=== PATIENT | female | born 1970 | race Caucasian/White ===

== ENCOUNTER → 2016-08-07 | Outpatient (CLI) | payer BC ==
--- NOTE | 2016-08-07 10:57 | MM ---
Reason for exam: clinical finding. Last mammogram was performed 1 year and 4 months ago. History: Patient is nulliparous. Family history of breast cancer in maternal aunt at age 60. Benign US biopsy breast VAD RT of the right breast, April 05, 2015. Benign MG pre op needle loc RT of the right breast, November 08, 2014. Benign US breast aspiration single RT of the right breast, October 03, 2014. Benign excisional biopsy of the right breast, 2009. Took hormonal contraceptives for 16 years beginning at age 16. Indicated problem(s): pain in the right breast. Physical Findings: Nurse did not find any significant physical abnormalities on exam. MG 3D Diag Mammo W/Cad CHRISSIE Bilateral CC and MLO view(s) were taken. Prior study comparison: April 05, 2015, right breast MG diagnostic mammo RT wo CAD. March 26, 2015, bilateral MG diagnostic mammo w CAD CHRISSIE. The breast tissue is heterogeneously dense. This may lower the sensitivity of mammography. Finding: Architectural distortion in the upper outer quadrant of the right breast. Previous ultrasound biopsy, probable scar in the right breast. These results were verbally communicated with the patient and result sheet given to the patient on 08/07/16. ASSESSMENT: Probably benign, BI-RAD 3 RECOMMENDATION: Surgical consultation of the right breast. Called Dr. Reilly with mammographic findings and has scheduled an appointment for the patient for 09/03/16 at 2:[address] Baires. PRELIMINARY REPORT CALLED AND FAXED TO DR. BAIRES ON 08/07/16 AT 300/TP.
--- NOTE | 2016-08-07 10:58 | USB ---
Reason for exam: clinical finding. History: Patient is nulliparous. Family history of breast cancer in maternal aunt at age 60. Benign US biopsy breast VAD RT of the right breast, April 05, 2015. Benign MG pre op needle loc RT of the right breast, November 08, 2014. Benign US breast aspiration single RT of the right breast, October 03, 2014. Benign excisional biopsy of the right breast, 2009. Took hormonal contraceptives for 16 years beginning at age 16. Indicated problem(s): lump or thickening in the right breast. US Breast RT Right breast ultrasound including all four quadrants, the retroareolar region and axilla demonstrates no cystic or solid lesion seen. These results were verbally communicated with the patient and result sheet given to the patient on 08/07/16. ASSESSMENT: Probably benign, BI-RAD 3 RECOMMENDATION: Surgical consultation of the right breast. Called Dr. Reilly with mammographic findings and has scheduled an appointment for the patient for 09/03/16 at 2:[address] Baires. PRELIMINARY REPORT CALLED AND FAXED TO DR. BAIRES ON 08/07/16 AT 300/TP.
== END | disposition home or self-care (01) ==
LOC: RADMAMWWP 08:18
PROVIDERS: ATTEND Obstetrics & Gynecology
DX: N63 Unspecified lump in breast (principal); N64.4 Mastodynia; R92.8 Other abnormal and inconclusive findings on diagnostic imaging of breast
CPT/HCPCS: 76641; G0204; G0279

== ENCOUNTER → 2017-08-27 | Outpatient (CLI) | payer BC ==
--- NOTE | 2017-08-27 14:53 | MM ---
Reason for exam: additional evaluation requested from prior study. Last mammogram was performed 1 year and 1 month ago. History: Patient is nulliparous. Family history of breast cancer in maternal aunt at age 60. Benign US biopsy breast VAD RT of the right breast, April 05, 2015. Benign MG pre op needle loc RT of the right breast, November 08, 2014. Benign US breast aspiration single RT of the right breast, October 03, 2014. Benign excisional biopsy of the right breast, 2009. Took hormonal contraceptives for 16 years beginning at age 16. Physical Findings: Nurse did not find any significant physical abnormalities on exam. MG 3D Diag Mammo W/Cad CHRISSIE Bilateral CC and MLO view(s) were taken. Spot compression CC view(s) were taken of the left breast. Prior study comparison: August 07, 2016, bilateral MG 3d diag mammo w/cad CHRISSIE. April 05, 2015, right breast MG diagnostic mammo RT wo CAD. The breast tissue is heterogeneously dense. This may lower the sensitivity of mammography. Previous mammotome biopsy in the right breast. Focal asymmetry in the left breast disperses. Distortion on right from prior biopsies. These results were verbally communicated with the patient and result sheet given to the patient on 08/27/17. ASSESSMENT: Benign, BI-RAD 2 RECOMMENDATION: Routine screening mammogram of both breasts in 1 year.
== END | disposition home or self-care (01) ==
LOC: RADMAMWWP 13:39
PROVIDERS: ATTEND Obstetrics & Gynecology
DX: R92.8 Other abnormal and inconclusive findings on diagnostic imaging of breast (principal)
CPT/HCPCS: 77066; G0279

== ENCOUNTER → 2018-09-09 | Outpatient (CLI) | payer BC ==
--- NOTE | 2018-09-10 15:01 | MM ---
Reason for exam: screening (asymptomatic). Last mammogram was performed 1 year ago. History: Patient is nulliparous. Family history of breast cancer in maternal aunt at age 60. Benign US biopsy breast VAD RT of the right breast, April 05, 2015. Benign MG pre op needle loc RT of the right breast, November 08, 2014. Benign US breast aspiration single RT of the right breast, October 03, 2014. Benign excisional biopsy of the right breast, 2009. Took hormonal contraceptives for 16 years beginning at age 16. Physical Findings: A clinical breast exam by your physician is recommended on an annual basis and results should be correlated with mammographic findings. MG 3D Screening Mammo W/Cad Bilateral CC and MLO view(s) were taken. Prior study comparison: August 27, 2017, bilateral MG 3d diag mammo w/cad CHRISSIE. August 07, 2016, bilateral MG 3d diag mammo w/cad CHRISSIE. The breast tissue is heterogeneously dense. This may lower the sensitivity of mammography. Finding: There is a new 28 mm circumscribed round mass in the upper outer quadrant, middle position of the left breast. Previous mammotome biopsy in the right breast. New finding since August 27, 2017 and August 07, 2016. ASSESSMENT: Incomplete: need additional imaging evaluation, BI-RAD 0 RECOMMENDATION: Ultrasound of the left breast. [facility] will attempt to contact patient to return for ultrasound.
== END | disposition home or self-care (01) ==
LOC: RADMAMWWP 16:05
PROVIDERS: ATTEND Obstetrics & Gynecology
DX: Z12.31 Encounter for screening mammogram for malignant neoplasm of breast (principal)
CPT/HCPCS: 77063; 77067

== ENCOUNTER 2018-09-20 05:40 | Inpatient (IN) | payer BC ==
--- NOTE | 2018-09-20 06:22 | ED ---
Abdominal Pain HPI - General Source: patient Mode of arrival: ambulatory Limitations: no limitations - History of Present Illness MD Complaint: abdominal pain Onset/Timin -: days(s) Location: RLQ Radiation: none Severity: severe Quality: sharp Consistency: constant Improves With: nothing Worsens With: nothing Associated Symptoms: nausea - Related Data LMP (females 10-50): this week <Dillon Stockton - Last Filed: 09/20/18 06:18> <Zachariah Reid - Last Filed: 09/20/18 08:55> - General Chief Complaint: Abdominal Pain Stated Complaint: Abdominal pain Time Seen by Provider: 09/20/18 05:57 - History of Present Illness Initial Comments: 's patient is a 48-year-old woman who complains of right lower quadrant pain that has been worsening over the past 4 days. She states that now it is constant, severe, sharp. She has not noted worsening or relieving factors. She has had some associated nausea but denies other symptoms. Patient states that her menstrual period This month did seem to start a little earlier than usual. Patient declines analgesia at initial history and physical (Dillon Stockton) - Related Data Home Medications Medication Instructions Recorded Confirmed ALPRAZolam [Xanax] 0.25 mg PO TID PRN 11/03/14 11/08/14 Meclizine [Antivert] 25 mg PO TID PRN 11/03/14 11/08/14 Naproxen 500 mg PO Q12HR PRN 11/03/14 11/08/14 Previous Rx's Medication Instructions Recorded Hydrocodone/Acetaminophen [[place] 1 - 2 each PO Q4HR PRN #30 tab 11/08/14 5-325] Allergies Allergy/AdvReac Type Severity Reaction Status Date / Time Penicillins Allergy Severe Verified 09/20/18 05:47 Dizziness & Hives Review of Systems ROS Other: All systems not noted in ROS Statement are negative. Constitutional: Denies: fever, chills Respiratory: Denies: cough, dyspnea Cardiovascular: Denies: chest pain, palpitations, edema Gastrointestinal: Reports: abdominal pain, nausea. Denies: vomiting, diarrhea, constipation, melena Genitourinary: Denies: dysuria, hematuria, discharge Musculoskeletal: Denies: back pain Skin: Denies: rash Neurological: Denies: headache, weakness, numbness <Dillon Stockton - Last Filed: 09/20/18 06:18> ROS Other: All systems not noted in ROS Statement are negative. <Zachariah Reid - Last Filed: 09/20/18 08:55> ROS Statement: Those systems with pertinent positive or pertinent negative responses have been documented in the HPI. Past Medical History Past Medical History: Osteoarthritis (OA) Additional Past Medical History / Comment(s): HX POSITIONAL VERTIGO, LOWER BACK & KNEES-ARTHRITIS, HX LUMP RT BREAST-HAD ULTRASOUND GUIDED RT BREAST CYST ASPIRATION 10/03/14 History of Any Multi-Drug Resistant Organisms: None Reported Past Surgical History: Breast Surgery Additional Past Surgical History / Comment(s): BRT BREAST BX Past Anesthesia/Blood Transfusion Reactions: Motion Sickness Additional Past Anesthesia/Blood Transfusion Reaction / Comment(s): POSITIONAL VERTIGO- Past Psychological History: No Psychological Hx Reported Smoking Status: Never smoker Past Alcohol Use History: Rare Past Drug Use History: None Reported - Past Family History Mother Additional Family Medical History / Comment(s): MOM HAS HX FIBROSIS BREASTS- PT'S AUNT(M) HAD HX BREAST CA <DamasoDillon reyes - Last Filed: 09/20/18 06:18> General Exam Limitations: no limitations General appearance: alert, in no apparent distress Head exam: Present: atraumatic, normocephalic Eye exam: Present: normal appearance. Absent: scleral icterus, conjunctival injection ENT exam: Present: normal oropharynx Respiratory exam: Present: normal lung sounds bilaterally. Absent: respiratory distress, wheezes, rales, rhonchi, stridor Cardiovascular Exam: Present: regular rate, normal rhythm, normal heart sounds. Absent: systolic murmur, diastolic murmur, rubs, gallop GI/Abdominal exam: Present: soft, tenderness, guarding, normal bowel sounds. Absent: distended, rebound, rigid, mass, pulsatile mass, hernia Extremities exam: Present: normal inspection, normal capillary refill. Absent: pedal edema, calf tenderness Back exam: Present: normal inspection. Absent: CVA tenderness (R), CVA tenderness (L) Neurological exam: Present: alert Skin exam: Present: warm, dry, intact, normal color. Absent: rash <MahinDillon - Last Filed: 09/20/18 06:18> Course Vital Signs 09/20/18 09/20/18 05:44 06:43 Temperature 98.4 F 100.4 F H Pulse Rate 107 H 97 Respiratory 20 18 Rate Blood Pressure 119/80 122/87 O2 Sat by Pulse 97 99 Oximetry Medical Decision Making - Lab Data Result diagrams: 09/20/18 06:10 09/20/18 06:10 <Zachariah Reid - Last Filed: 09/20/18 08:55> - Medical Decision Making Both CAT scans revealed inflammation in the right lower quadrant but no obvious appendicitis but still is within the differential. I spoke with Dr. Lopezania agreed to admit the patient I admitted the patient wrote admitting orders. (Zachariah Reid) - Lab Data Lab Results 09/20/18 09/20/18 09/20/18 Range/Units 05:51 05:51 06:10 WBC (3.8-10.6) k/uL RBC (3.80-5.40) m/uL Hgb (11.4-16.0) gm/dL Hct (34.0-46.0) % MCV (80.0-100.0) fL MCH (25.0-35.0) pg MCHC (31.0-37.0) g/dL RDW (11.5-15.5) % Plt Count (150-450) k/uL Neutrophils % % Lymphocytes % % Monocytes % % Eosinophils % % Basophils % % Neutrophils # (1.3-7.7) k/uL Lymphocytes # (1.0-4.8) k/uL Monocytes # (0-1.0) k/uL Eosinophils # (0-0.7) k/uL Basophils # (0-0.2) k/uL Sodium 139 (137-145) mmol/L Potassium 4.0 (3.5-5.1) mmol/L Chloride 104 (98-107) mmol/L Carbon Dioxide 25 (22-30) mmol/L Anion Gap 10 mmol/L BUN 6 L (7-17) mg/dL Creatinine 0.59 (0.52-1.04) mg/dL Est GFR (CKD-EPI)AfAm >90 (>60 ml/min/1.73 sqM) Est GFR (CKD-EPI)NonAf >90 (>60 ml/min/1.73 sqM) Glucose 132 H (74-99) mg/dL Calcium 9.0 (8.4-10.2) mg/dL Total Bilirubin 1.0 (0.2-1.3) mg/dL AST 17 (14-36) U/L ALT 27 (9-52) U/L Alkaline Phosphatase 78 (38-126) U/L Total Protein 6.6 (6.3-8.2) g/dL Albumin 3.8 (3.5-5.0) g/dL Amylase <30 L (30-110) U/L Lipase 28 (23-300) U/L Urine Color Yellow Urine Appearance Clear (Clear) Urine pH 5.5 (5.0-8.0) Ur Specific [place] 1.019 (1.001-1.035) Urine Protein Trace H (Negative) Urine Glucose (UA) Negative (Negative) Urine Ketones 2+ H (Negative) Urine Blood Moderate H (Negative) Urine Nitrite Negative (Negative) Urine Bilirubin Negative (Negative) Urine Urobilinogen <2.0 (<2.0) mg/dL Ur Leukocyte Esterase Negative (Negative) Urine RBC 1 (0-5) /hpf Urine WBC 2 (0-5) /hpf Ur Squamous Epith Cells 1 (0-4) /hpf Urine Bacteria Rare H (None) /hpf Urine Mucus Few H (None) /hpf Urine HCG, Qual Not Detected (Not Detectd) 09/20/18 Range/Units 06:10 WBC 15.8 H (3.8-10.6) k/uL RBC 4.45 (3.80-5.40) m/uL Hgb 13.2 (11.4-16.0) gm/dL Hct 40.0 (34.0-46.0) % MCV 89.8 (80.0-100.0) fL MCH 29.6 (25.0-35.0) pg MCHC 33.0 (31.0-37.0) g/dL RDW 12.7 (11.5-15.5) % Plt Count 295 (150-450) k/uL Neutrophils % 83 % Lymphocytes % 9 % Monocytes % 4 % Eosinophils % 3 % Basophils % 0 % Neutrophils # 13.0 H (1.3-7.7) k/uL Lymphocytes # 1.5 (1.0-4.8) k/uL Monocytes # 0.7 (0-1.0) k/uL Eosinophils # 0.4 (0-0.7) k/uL Basophils # 0.0 (0-0.2) k/uL Sodium (137-145) mmol/L Potassium (3.5-5.1) mmol/L Chloride (98-107) mmol/L Carbon Dioxide (22-30) mmol/L Anion Gap mmol/L BUN (7-17) mg/dL Creatinine (0.52-1.04) mg/dL Est GFR (CKD-EPI)AfAm (>60 ml/min/1.73 sqM) Est GFR (CKD-EPI)NonAf (>60 ml/min/1.73 sqM) Glucose (74-99) mg/dL Calcium (8.4-10.2) mg/dL Total Bilirubin (0.2-1.3) mg/dL AST (14-36) U/L ALT (9-52) U/L Alkaline Phosphatase (38-126) U/L Total Protein (6.3-8.2) g/dL Albumin (3.5-5.0) g/dL Amylase (30-110) U/L Lipase (23-300) U/L Urine Color Urine Appearance (Clear) Urine pH (5.0-8.0) Ur Specific [place] (1.001-1.035) Urine Protein (Negative) Urine Glucose (UA) (Negative) Urine Ketones (Negative) Urine Blood (Negative) Urine Nitrite (Negative) Urine Bilirubin (Negative) Urine Urobilinogen (<2.0) mg/dL Ur Leukocyte Esterase (Negative) Urine RBC (0-5) /hpf Urine WBC (0-5) /hpf Ur Squamous Epith Cells (0-4) /hpf Urine Bacteria (None) /hpf Urine Mucus (None) /hpf Urine HCG, Qual (Not Detectd) Disposition <Dillon Stockton - Last Filed: 09/20/18 06:18> Time of Disposition: 08:55 <Zachariah Reid - Last Filed: 09/20/18 08:55> Clinical Impression: Acute appendicitis Disposition: ADMITTED IP TO THIS [facility] Referrals: Nonstaff,Physician [Primary Care Provider] - 1-2 days
[2018-09-20 06:28] LABS: Appearance,Urine Clear (Clear); Bacteria,Urine Rare /hpf; Bilirubin,Urine Negative (Negative); Blood,Urine Moderate (Negative); Color,Urine Yellow; Glucose,Urine (UA) Negative (Negative); Ketones,Urine 2+ (Negative); Leukocyte Esterase,Urine Negative (Negative); Mucus,Urine Few /hpf; Nitrite,Urine Negative (Negative); PH, Urine 5.5 (5.0-8.0); Protein,Urine Trace (Negative); RBC,Urine 1 /hpf (0-5); Specific Gravity,Urine 1.019 (1.001-1.035); Squamous Epithelial Cell,Urine 1 /hpf (0-4); Urobilinogen,Urine <2.0 mg/dL (<2.0); WBC,Urine 2 /hpf (0-5)
[2018-09-20 06:28] LABS: Basophils % (A) 0 %; Eosinophils # (A) 0.4 k/uL (0-0.7); Eosinophils % (A) 3 %; HGB 13.2 gm/dL (11.4-16.0); Lymphocytes # (A) 1.5 k/uL (1.0-4.8); Lymphocytes % (A) 9 %; MCH 29.6 pg (25.0-35.0); MCV 89.8 fL (80.0-100.0); Mean Platelet Volume 7.7; Monocytes # (A) 0.7 k/uL (0-1.0); Monocytes % (A) 4 %; Neutrophils % (A) 83 %; Platelet Count 295 k/uL (150-450); RBC 4.45 m/uL (3.80-5.40); RDW 12.7 % (11.5-15.5); WBC 15.8 k/uL (3.8-10.6)
[2018-09-20 06:40] LABS: ALT 27 U/L (9-52); AST 17 U/L (14-36); Albumin 3.8 g/dL (3.5-5.0); Alkaline Phosphatase 78 U/L (38-126); Anion Gap 10 mmol/L; Blood Urea Nitrogen 6 mg/dL (7-17); Carbon Dioxide 25 mmol/L (22-30); Chloride 104 mmol/L (98-107); Glucose 132 mg/dL (74-99); Lipase 28 U/L (23-300); Sodium 139 mmol/L (137-145); Total Protein 6.6 g/dL (6.3-8.2)
[2018-09-20] MEDS ORDERED: MORPHINE SULFATE 4 MG/ML SYRINGE IV STA (06:43)
[2018-09-20 06:53] LABS: Amylase <30 U/L (30-110)
--- NOTE | 2018-09-20 07:28 | CT ---
EXAMINATION TYPE: CT abdomen pelvis wo con DATE OF EXAM: 09/20/2018 COMPARISON: None HISTORY: Abdominal pain CT DLP: 748.8 mGycm Automated exposure control for dose reduction was used. TECHNIQUE: Helical acquisition of images from the lung bases through the pelvis. FINDINGS: Lack of intravenous contrast could compromise sensitivity. LUNG BASES: No significant abnormality is appreciated. AORTA: No significant abnormality is appreciated. LIVER/GB: The liver is enlarged. Gallbladder is normal.. PANCREAS: No significant abnormality is seen. SPLEEN: No significant abnormality is seen. ADRENALS: No significant abnormality is seen. KIDNEYS: No significant abnormality is seen. REPRODUCTIVE ORGANS: Suspect the uterus is bulky, possible underlying fibroids. URINARY BLADDER: No significant abnormality is seen. BOWEL: There is abnormal inflammatory change at the level of the cecum. There are associated nonenlar ged nodes present. The appendix is not seen with certainty. Some local wall thickening suspected FREE AIR: No Free Air is visible. ASCITES: Minimal free fluid present within the pelvis. PELVIC ADENOPATHY: None visualized. RETROPERITONEAL ADENOPATHY: No Retroperitoneal Adenopathy visible. OSSEOUS STRUCTURES: No significant abnormality is seen. IMPRESSION: FINDINGS COULD POSSIBLY REPRESENT APPENDICITIS, CONTRAST-ENHANCED EXAM MAY BE OF BENEFIT. PROBABLE FI BROID UTERUS. SMALL AMOUNT OF FREE FLUID IN THE PELVIS.
[2018-09-20] MEDS: IOPAMIDOL-300 CONTRAST 30 ML VIAL (ORAL USE) PO PRN ×2 (07:51→08:02)
--- NOTE | 2018-09-20 08:28 | CT ---
EXAMINATION TYPE: CT abdomen pelvis w con DATE OF EXAM: 09/20/2018 COMPARISON: Earlier in the day HISTORY: Right lower quadrant pain CONTRAST: CT scan of the abdomen and pelvis is performed without Oral Contrast and with IV Contrast, patient in jected with 100 mL of Isovue 300. FINDINGS: LUNG BASES-: No visible nodule. No infiltrate. LIVER/GB: No calcified gallstones. No space occupying hepatic lesion. Biliary tree is of normal ca liber. PANCREAS: No inflammation. No distinct mass. SPLEEN: No splenic enlargement. No lesion seen. ADRENALS: No nodule. No thickening. KIDNEYS/BLADDER: No hydronephrosis. No nephrolithiasis. No distinct solid renal mass. Left-sided parapelvic renal cysts noted. Urinary bladder grossly unremarkable. BOWEL: There is inflammatory process at the level of the cecum. The appendix is not clearly visualize d. I cannot exclude underlying acute appendicitis. Mildly prominent surrounding lymph nodes are prese nt. Small amount of free fluid is noted extending into the cul-de-sac. No evidence for drainable absc ess. No free air. GENITAL ORGANS: No gross abnormality. LYMPH NODES: No greater than 1cm abdominal or pelvic lymph nodes are appreciated. AORTA: No significant abnormality. OSSEOUS STRUCTURES: No significant abnormality is seen. OTHER: No significant additional abnormality is seen. IMPRESSION: 1. Inflammatory process noted at the level of the cecum with underlying phlegmon and no drainable ab scess at this time. The appendix is not clearly visualized. I cannot exclude acute appendicitis. Stri ct clinical correlation advised. Small amount of free fluid noted.
[2018-09-20] MEDS ORDERED: SODIUM CHLORIDE 0.9% 1,000 ML IV ONE (08:56)
[2018-09-20] MEDS ORDERED: LEVOFLOXACIN 750MG-D5W PMX 750 MG in DEXTROSE/WATER 1 150ML.BAG IVPB STA (08:57)
[2018-09-20] MEDS ORDERED: HYDROmorphone 1 MG/ML 1 ML SYRINGE IVP STA (09:50)
[2018-09-20] MEDS ORDERED: ONDANSETRON 4 MG/2 ML VIAL IVP STA (09:50)
[2018-09-20 10:00] VITALS: BMI 35.6
--- NOTE | 2018-09-20 11:40 | P.GSHP ---
History of Present Illness H&P Date: 09/20/18 Chief Complaint: Right lower quadrant pain This is a 40-year-old female who presents emergency room with complaints of right lower quadrant pain. Patient awake CAT scan showed evidence of acute appendicitis. Past Medical History Past Medical History: Osteoarthritis (OA) Additional Past Medical History / Comment(s): Positional vertigo, arthritis lower back and bilateral knees. Pt has had a recent tooth infection treated with predinisone and ABX History of Any Multi-Drug Resistant Organisms: None Reported Past Surgical History: Breast Surgery Additional Past Surgical History / Comment(s): R breast cyst aspiration and biopsy, R arm benign tumor removed. Past Anesthesia/Blood Transfusion Reactions: Motion Sickness Additional Past Anesthesia/Blood Transfusion Reaction / Comment(s): POSITIONAL VERTIGO- Smoking Status: Never smoker - Past Family History Father Family Medical History: Coronary Artery Disease (CAD), Myocardial Infarction ([place]) Additional Family Medical History / Comment(s): Father had a [place] in his late 60s. He has a cardiac stent. Mother Additional Family Medical History / Comment(s): MOM HAS HX FIBROSIS BREASTS- PT'S AUNT(M) HAD HX BREAST CA Medications and Allergies Home Medications Medication Instructions Recorded Confirmed Type ALPRAZolam [Xanax] 0.25 mg PO TID PRN 11/03/14 09/20/18 History Alpha Lipoic Acid 100 mg PO DAILY 09/20/18 09/20/18 History Energy Gummies 2 tab PO DAILY 09/20/18 History Ibuprofen [Motrin Ib] 600 mg PO QID PRN 09/20/18 09/20/18 History Ibuprofen [Motrin] 800 mg PO TID PRN 09/20/18 09/20/18 History Multivitamin [Multivitamins Adult 2 tab PO DAILY 09/20/18 09/20/18 History Gummies] Naproxen Sodium [Midol] 220 mg PO Q12HR PRN 09/20/18 09/20/18 History Vitamin C Gummies 2 tab PO DAILY 09/20/18 History Vitamin C/Biotin [Hair, Skin and 2 tab PO DAILY 09/20/18 09/20/18 History Nails] Vitamin D Gummies 2 tab PO DAILY 09/20/18 History Allergies Allergy/AdvReac Type Severity Reaction Status Date / Time Penicillins Allergy Severe Verified 09/20/18 08:55 Dizziness & Hives Surgical - Exam Vital Signs Temp Pulse Resp BP Pulse Ox 98.4 F 107 H 20 119/80 97 09/20/18 05:44 09/20/18 05:44 09/20/18 05:44 09/20/18 05:44 09/20/18 05:44 - General well developed, moderate distress - Eyes PERRL - ENT normal pinna - Neck no masses - Respiratory normal expansion - Cardiovascular Rhythm: regular - Abdomen Right lower quadrant pain Abdomen: soft Results - Labs 09/20/18 06:10 09/20/18 06:10 Abnormal Lab Results - Last 24 Hours (Table) 09/20/18 09/20/18 09/20/18 Range/Units 05:51 06:10 06:10 WBC 15.8 H (3.8-10.6) k/uL Neutrophils # 13.0 H (1.3-7.7) k/uL BUN 6 L (7-17) mg/dL Glucose 132 H (74-99) mg/dL Amylase <30 L (30-110) U/L Urine Protein Trace H (Negative) Urine Ketones 2+ H (Negative) Urine Blood Moderate H (Negative) Urine Bacteria Rare H (None) /hpf Urine Mucus Few H (None) /hpf Diabetes panel 09/20/18 Range/Units 06:10 Sodium 139 (137-145) mmol/L Potassium 4.0 (3.5-5.1) mmol/L Chloride 104 (98-107) mmol/L Carbon Dioxide 25 (22-30) mmol/L BUN 6 L (7-17) mg/dL Creatinine 0.59 (0.52-1.04) mg/dL Glucose 132 H (74-99) mg/dL Calcium 9.0 (8.4-10.2) mg/dL AST 17 (14-36) U/L ALT 27 (9-52) U/L Alkaline Phosphatase 78 (38-126) U/L Total Protein 6.6 (6.3-8.2) g/dL Albumin 3.8 (3.5-5.0) g/dL Calcium panel 09/20/18 Range/Units 06:10 Calcium 9.0 (8.4-10.2) mg/dL Albumin 3.8 (3.5-5.0) g/dL Pituitary panel 09/20/18 Range/Units 06:10 Sodium 139 (137-145) mmol/L Potassium 4.0 (3.5-5.1) mmol/L Chloride 104 (98-107) mmol/L Carbon Dioxide 25 (22-30) mmol/L BUN 6 L (7-17) mg/dL Creatinine 0.59 (0.52-1.04) mg/dL Glucose 132 H (74-99) mg/dL Calcium 9.0 (8.4-10.2) mg/dL Adrenal panel 09/20/18 Range/Units 06:10 Sodium 139 (137-145) mmol/L Potassium 4.0 (3.5-5.1) mmol/L Chloride 104 (98-107) mmol/L Carbon Dioxide 25 (22-30) mmol/L BUN 6 L (7-17) mg/dL Creatinine 0.59 (0.52-1.04) mg/dL Glucose 132 H (74-99) mg/dL Calcium 9.0 (8.4-10.2) mg/dL Total Bilirubin 1.0 (0.2-1.3) mg/dL AST 17 (14-36) U/L ALT 27 (9-52) U/L Alkaline Phosphatase 78 (38-126) U/L Total Protein 6.6 (6.3-8.2) g/dL Albumin 3.8 (3.5-5.0) g/dL Assessment and Plan Assessment: Acute appendicitis. We'll perform laparoscopic appendectomy.
[2018-09-20] MEDS ORDERED: IV FLUID CONTINUATION 1,000 ML IV ONE (12:06)
[2018-09-20] MEDS ORDERED: DEXAMETHASONE SOD PHOS (MDV) 100 MG/10 ML VIAL IV ONE (12:20)
[2018-09-20] MEDS ORDERED: SCOPOLAMINE 1.5MG/72HR PATCH TRANSDERM ONE (12:21)
[2018-09-20] MEDS ORDERED: HEPARIN SODIUM,PORCINE 5,000 UNIT/ML 1 ML VIAL SQ ONE (13:10)
[2018-09-20] MEDS ORDERED: BUPIVACAIN-EPI 0.5%-1:200,000 30 ML VIAL SQ ONE (13:33)
[2018-09-20] MEDS ORDERED: MIDAZOLAM 2 MG/2 ML VIAL ONE (13:38)
[2018-09-20] MEDS ORDERED: KETOROLAC 30 MG/ML 1 ML VIAL ONE (13:38)
[2018-09-20] MEDS ORDERED: fentaNYL (PF) 50 MCG/ML 2 ML AMP ONE (13:38)
[2018-09-20] MEDS ORDERED: HYDROmorphone (PF) 1 MG/ML ONE (13:38)
[2018-09-20] MEDS ORDERED: LIDOCAINE 1% INJ 10MG/ML (20 ML MDV) ONE (13:38)
[2018-09-20] MEDS ORDERED: GLYCOPYRROLATE 0.2 MG/ML 2 ML VIAL ONE (13:38)
[2018-09-20] MEDS ORDERED: NEOSTIGMINE 1 MG/ML 10 ML VIAL ONE (13:38)
[2018-09-20] MEDS ORDERED: PROPOFOL 10 MG/ML 20 ML VIAL IV ONE (13:38)
[2018-09-20] MEDS ORDERED: ROCURONIUM BROMIDE 10 MG/ML 10 ML VIAL IV ONE (13:38)
[2018-09-20] MEDS ORDERED: SODIUM CHLORIDE 0.9% 50 ML with CLINDAMYCIN 600 MG IV ONE ×2 (13:55)
[2018-09-20] MEDS ORDERED: LACTATED RINGERS 1,000 ML IV ONE ×2 (14:22→14:39)
[2018-09-20] MEDS ORDERED: ACETAMINOPHEN TAB 325 MG TAB PO PRN (14:39)
[2018-09-20] MEDS ORDERED: ONDANSETRON 4 MG/2 ML VIAL IVP PRN (14:39)
[2018-09-20] MEDS ORDERED: NALOXONE 0.4 MG/ML 1 ML VIAL IV PRN (14:39)
--- NOTE | 2018-09-20 15:13 | P.OP ---
Date of Procedure: 09/20/18 Preoperative Diagnosis: Acute appendicitis Postoperative Diagnosis: (Incised with rupture and retrocecal abscess Procedure(s) Performed: Laparoscopic appendectomy and drainage of abscess Anesthesia: HARVEY Surgeon: Jeff Buck Estimated Blood Loss (ml): 20 Pathology: other (Appendix) Condition: stable Disposition: PACU Description of Procedure: The patient's placed on the operating table in the supine position. The patient received general anesthesia. The abdomen was prepped and draped in the usual sterile fashion. The skin was anesthetized 1% local Xylocaine at the trocar sites. Using an 11 blade the skin was incised at the umbilicus. The umbilicus was grasped with a [place] clamp and then a Veress needle was placed into the peritoneal cavity. Position of the Veress needle was confirmed with positive drop test. After adequate insufflation a 5 mm trocar was placed into the peritoneal cavity. The abdomen was further insufflated. And then the laparoscope was placed in the peritoneal cavity. Next a 5 mm trocar was placed in the midline suprapubic position. And then a 10 mm trocar was placed in the midline epigastric position. The patient was rotated with the right side up and in Trendelenburg. The appendix was very inflamed. There appeared to be a phlegmon in the right lower quadrant. Using gentle traction the appendix was rotated medially. There was an abscess located The cecum. This was aspirated and irrigated. There is purulent fluid. At this point the appendix was bluntly dissected off of the small bowel and the lateral pelvic wall. The area is very friable. There was diffuse oozing from the area. There is no definite bleeding. The appendix was then further dissected down to the pelvic stump. Using the Harmonic scissors the mesoappendix was divided. And then an Endoloop was placed around the base the appendix. The appendix was then transected using Harmonic scissors. T the appendix was then placed in an Endo Catch and brought out through the 10 mm trocar site. A YOSEF drain was placed into the pleural cavity and brought out through the midline 5 mm trocar site. The YOSEF drain is positioned along the right pelvis and right paracolic gutter. . The abdomen was irrigated. There is no bleeding seen. The trochars withdrawn. The skin was closed interrupted 3-0 Monocryl suture. Dermabond dressing was applied. Patient was sent to recovery room in stable condition.
[2018-09-20] MEDS: metroNIDAZOLE-NS PMX 500 MG in SALINE 1 100ML.BAG IVPB SCH ×2 (16:27→23:51)
[2018-09-20] MEDS: HYDROmorphone 0.5 MG/0.5 ML SYRINGE IVP PRN (17:48)
[2018-09-20] MEDS: DOCUSATE 100 MG CAP PO SCH (22:07)
[2018-09-21] MEDS: HYDROcodone/APAP 5-325MG 1 EACH TAB PO PRN ×2 (01:02→08:48)
[2018-09-21] MEDS: DOCUSATE 100 MG CAP PO SCH ×2 (08:42→20:02)
[2018-09-21] MEDS: metroNIDAZOLE-NS PMX 500 MG in SALINE 1 100ML.BAG IVPB SCH ×3 (08:42→23:29)
[2018-09-21] MEDS: ENOXAPARIN 40 MG/0.4 ML SYRINGE SQ SCH (08:42)
[2018-09-21] MEDS: LEVOFLOXACIN 750MG-D5W PMX 750 MG in DEXTROSE/WATER 1 150ML.BAG IVPB SCH (09:02)
[2018-09-21] MEDS: HYDROmorphone 0.5 MG/0.5 ML SYRINGE IVP PRN ×4 (10:47→21:59)
[2018-09-21 11:12] LABS: Basophils % (A) 0 %; Eosinophils % (A) 0 %; HCT 32.9 % (34.0-46.0); HGB 10.7 gm/dL (11.4-16.0); Lymphocytes # (A) 0.9 k/uL (1.0-4.8); Lymphocytes % (A) 6 %; MCH 29.7 pg (25.0-35.0); MCHC 32.4 g/dL (31.0-37.0); MCV 91.6 fL (80.0-100.0); Monocytes # (A) 0.5 k/uL (0-1.0); Monocytes % (A) 3 %; Neutrophils # (A) 13.1 k/uL (1.3-7.7); Neutrophils % (A) 90 %; Platelet Count 273 k/uL (150-450); RDW 12.8 % (11.5-15.5); WBC 14.6 k/uL (3.8-10.6)
--- NOTE | 2018-09-21 11:20 | CONS ---
CONSULTATION CHIEF COMPLAINT: Abdominal pain for a week. 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 She started to have some right lower quadrant abdominal pain 5 or 6 days before coming in. The pain actually started there. She had no nausea or vomiting. She did have a low-grade fever and some chills. She thought it would go away. She finally came to emergency room where she was found to have an acute abdomen. It initially was thought it was pancreatitis, but turned out to be acute and perforated appendix. REVIEW OF SYSTEMS: She is otherwise fairly healthy. Central Nervous System and Peripheral Nervous System: She has had no headaches, seizures, neurologic problems, etc. She has had no problems with vision or the hearing. She has had no shortness of breath, cough, hemoptysis, chest pain, asthma, pleurisy, heart disease, hypertension, murmurs, rheumatic fever, orthopnea, PND, chest pain, hematemesis, melena, hematochezia, jaundice, hepatitis, cirrhosis, hematuria, frequency, urgency, renal failure, vaginal discharge or bleeding, arthralgias, diabetes, etc. She has had one , but no children. Past medical history, family history and personal and social history revealed that she is on Advil and Xanax p.r.n. She is still allergic to PENICILLIN. Surgically, she has had 2 right breast biopsies that were benign and a procedure on her right ear. 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 She does not smoke or drink. PHYSICAL EXAMINATION: Blood pressure is 121/78 with a pulse of 76, respirations of 20 and she is afebrile. GENERAL: She appeared to be well developed, well nourished, no acute distress. Skin color is normal. Skin is warm, dry. Lymph nodes are not enlarged. Head, ears, eyes, nose, mouth, and throat are normal. Neck veins are not distended. Thyroid is not enlarged. Chest is clear. The cardiac exam is normal. Abdomen is soft and she is tender in the right lower quadrant with rebound. EXTREMITIES: Normal. NEUROLOGICAL: She is intact. IMPRESSION: Acute appendicitis. RECOMMENDATION: Continue with operative plan. MMODL / IJN: [id number] /
[2018-09-21 11:26] LABS: ALT 23 U/L (9-52); AST 12 U/L (14-36); Alkaline Phosphatase 71 U/L (38-126); Anion Gap 7 mmol/L; Blood Urea Nitrogen 9 mg/dL (7-17); Calcium 8.7 mg/dL (8.4-10.2); Carbon Dioxide 28 mmol/L (22-30); Chloride 103 mmol/L (98-107); Glucose 133 mg/dL (74-99); Potassium 4.3 mmol/L (3.5-5.1); Sodium 138 mmol/L (137-145); Total Bilirubin 0.6 mg/dL (0.2-1.3); Total Protein 5.3 g/dL (6.3-8.2)
--- NOTE | 2018-09-21 14:32 | P.PN ---
Subjective Progress Note Date: 09/21/18 CHIEF COMPLAINT: Abdominal pain HISTORY OF PRESENT ILLNESS: Patient is status post laparoscopic appendectomy and drainage of abscess. POD #1. Patient seen at the bedside. Patient states her pain is tolerable. She is tolerating oral intake. Denies nausea or vomiting. Patient has been up in the hallway ambulating. PHYSICAL EXAM: VITAL SIGNS: Reviewed. GENERAL: Well-developed in no acute distress. HEENT: No sclera icterus. Extraocular movements grossly intact. Moist buccal mucosa. Head is atraumatic, normocephalic. ABDOMEN: Soft. Nondistended. Nontender. YOSEF drain with serous drainage drainage noted. NEUROLOGIC: Alert and oriented. Cranial nerves II through XII grossly intact. ASSESSMENT: 1. Acute appendicitis, status post laparoscopic appendectomy and drainage of abscess PLAN: 1. Pain control 2. Activity as tolerated 3. Incentive spirometry 4. Continue current diet 5. Monitor WBC. Continue antibiotics. Infectious disease on consult. Nurse practitioner note has been reviewed by physician. Signing provider agrees with the documented findings, assessment, and plan of care. Objective - Vital Signs Vital signs: Vital Signs Temp 97.4 F L 09/21/18 09:14 Pulse 74 09/21/18 09:14 Resp 20 09/21/18 09:14 BP 104/69 09/21/18 09:14 Pulse Ox 95 09/21/18 09:14 Intake & Output 09/20/18 09/21/18 09/21/18 18:59 06:59 18:59 Intake Total 1214 1550 Output Total 438 375 40 Balance 776 1175 -40 Weight 106.367 kg Intake: IV 1154 Intake, IV Titration 1100 Amount Lactated Ringers 1,000 ml 1000 @ 125 mls/hr IV .Q8H ONE Rx#:[id number] metroNIDAZOLE-NS PMX 500 100 mg In Saline 1 100ml.bag @ 100 mls/hr IVPB Q8HR [facility] Rx#:[id number] Oral 60 450 Output: Drainage 28 25 40 Lower Abdomen 28 25 40 Urine 400 350 Estimated Blood Loss 10 Other: Voiding Method Toilet # Voids 1 3 - Labs CBC & Chem 7: 09/21/18 09:23 09/21/18 09:23 Labs: Abnormal Lab Results - Last 24 Hours (Table) 09/21/18 09/21/18 Range/Units 09:23 09:23 WBC 14.6 H (3.8-10.6) k/uL RBC 3.60 L (3.80-5.40) m/uL Hgb 10.7 L (11.4-16.0) gm/dL Hct 32.9 L (34.0-46.0) % Neutrophils # 13.1 H (1.3-7.7) k/uL Lymphocytes # 0.9 L (1.0-4.8) k/uL Glucose 133 H (74-99) mg/dL AST 12 L (14-36) U/L Total Protein 5.3 L (6.3-8.2) g/dL Albumin 3.0 L (3.5-5.0) g/dL
--- NOTE | 2018-09-21 16:17 | PN ---
PROGRESS NOTE DATE OF SERVICE: 09/21/2018. CHIEF COMPLAINT: Status post appendectomy. HISTORY OF PRESENT ILLNESS: This lady is doing fairly well. She has had no fever, chills, nausea, vomiting, etc. PHYSICAL EXAMINATION: Chest is clear. Cardiac exam is normal. IMPRESSION: Status post appendectomy. PLAN: Progress activity and diet. MMODL / IJN: [id number] /
--- NOTE | 2018-09-21 23:01 | CONS ---
CONSULTATION DATE OF SERVICE: 10/01/2018. REASON FOR CONSULTATION: Ruptured appendicitis, appendical abscess, antibiotic recommendation. HISTORY OF PRESENT ILLNESS: The patient is a 48-year-old female who presented to [facility] ER 09/20/2018 with chief complaint of abdominal pain. The patient's pain started on Thursday, about 3 to 4 days prior to presentation to hospital. The patient's pain has been mostly in the lower abdominal area on the right side. The patient describes the pain to be initially dull aching, however, over the next few days the patient pain becoming more sharp and increased in intensity. It was almost 10/10 by the time she presented to the hospital. The patient has been complaining of fever with rigors and chills, feeling nauseated but no vomiting. She did not have any diarrhea. With these symptoms the patient was evaluated by the ER physician. The patient did have a CT of the abdomen and pelvis which did show inflammatory process noted at the level of the cecum with underlying phlegmon and and no drainable abscess at this time. The appendix is not clearly visualized. The patient subsequently was taken to the OR by Dr. Buck. The patient is status post laparoscopic appendectomy and drainage of the abscess. The patient has been started on Levaquin and Flagyl because of her PENICILLIN allergy. Infectious Disease was consulted for further recommendation regarding antibiotic therapy. REVIEW OF SYSTEMS: CONSTITUTIONAL: Positive for weakness along with fever. EYES: No complaints. ENT: No complaint. RESPIRATORY: No complaint. CARDIOVASCULAR: No complaint. GENITOURINARY: No complaint. MUSCULOSKELETAL: No complaint or deformity. PSYCHIATRY: Documented. ENDOCRINE: No complaint. NEUROLOGIC: No complaint. PAST MEDICAL HISTORY: Osteoarthritis, positional vertigo, chronic low back pain. PAST SURGICAL HISTORY: Right breast cyst aspiration biopsy, right arm benign tumor removed. SOCIAL HISTORY: No history of smoking, drinking or drug use. FAMILY HISTORY: Father history of coronary artery disease. Mother with fibrosis of the breast. ALLERGIES: PENICILLIN as a child with a rash. No history of anaphylaxis. MEDICATIONS: The patient is currently on Tylenol, [place], Xanax, Colace, Levaquin, Lovenox, Reglan, Flagyl, Narcan, Zofran. PHYSICAL EXAMINATION: Blood pressure is 104/69 with a pulse of 74, temperature 98.4, T-max is 101.3. She is 95% on 2 L nasal cannula. GENERAL DESCRIPTION: A middle aged female lying in bed in no distress. No tachypnea or accessory muscle of respiration use. HEENT: Shows slight pallor. No scleral icterus. Oral mucosa is dry. No pharyngeal erythema or thrush. NECK: Trachea central. No thyromegaly. LUNGS: Unlabored breathing. Clear to auscultation anteriorly. No wheeze or crackle. HEART: S1, S2. Regular rate and rhythm. ABDOMEN: Soft, mildly tender in right lower quadrant area. No guarding. No organomegaly. EXTREMITIES: No edema of feet. SKIN: No rash, no mass palpable. NEUROLOGICAL: The patient is awake, alert, oriented x3. Mood and affect normal. LABS: Hemoglobin 10.7, white count 14.6. Admission white count 15.8 with a BUN of 9, creatinine 0.60. Electrolytes have been normal. UA was negative. CT report as mentioned above. Unfortunately, no culture has been done this admission. DIAGNOSTIC IMPRESSION AND PLAN: 1. Patient admitted to the hospital with sepsis in this patient who did have a fever of 101.3 degrees Fahrenheit. The patient was tachycardic, heart rate of 91. Did have elevated white count of 15.7, meeting criteria for SIRS, ruptured appendicitis with appendical abscess status post laparoscopic appendectomy and drainage of the abscess. 2. The patient did have a PENICILLIN ALLERGY that will limit the number of antibiotics that could be safely used. PLAN: 1. We will start the patient on Rocephin 2 g piggyback daily and continue with Flagyl 500 and every 8 hours. 2. Gentle IV fluid. 3. We will follow up on clinical condition as well as cultures to further adjust medication if needed. Thank you for this consultation. Will follow this patient along with you. MMODL / IJN: [id number] /
[2018-09-22] MEDS: HYDROcodone/APAP 5-325MG 1 EACH TAB PO PRN ×4 (03:17→22:01)
[2018-09-22 08:34] LABS: Basophils % (A) 0 %; Eosinophils # (A) 0.3 k/uL (0-0.7); Eosinophils % (A) 2 %; HCT 35.1 % (34.0-46.0); HGB 11.1 gm/dL (11.4-16.0); Lymphocytes # (A) 1.7 k/uL (1.0-4.8); Lymphocytes % (A) 10 %; MCH 29.2 pg (25.0-35.0); MCHC 31.7 g/dL (31.0-37.0); MCV 92.1 fL (80.0-100.0); Mean Platelet Volume 7.5; Monocytes # (A) 0.7 k/uL (0-1.0); Monocytes % (A) 4 %; Neutrophils # (A) 13.8 k/uL (1.3-7.7); Neutrophils % (A) 83 %; Platelet Count 338 k/uL (150-450); RBC 3.82 m/uL (3.80-5.40); WBC 16.7 k/uL (3.8-10.6)
[2018-09-22] MEDS: metroNIDAZOLE-NS PMX 500 MG in SALINE 1 100ML.BAG IVPB SCH ×2 (08:48→15:29)
[2018-09-22] MEDS: ALPRAZolam 0.25 MG TAB PO PRN (08:50)
[2018-09-22] MEDS: DOCUSATE 100 MG CAP PO SCH ×2 (08:50→20:22)
[2018-09-22] MEDS: ENOXAPARIN 40 MG/0.4 ML SYRINGE SQ SCH (08:50)
--- NOTE | 2018-09-22 08:52 | CDI ---
Documentation Clarification Form Date: 09/22/2018 8:22:39 AM From: Loida Piña RN CCDS Admit Date: 09/21/2018 1:16:00 PM Patient Name: Gianna House Visit Number: [id number] Discharge Date: ATTENTION: The Clinical Documentation Specialists (CDI) and [facility] Coding Staff appreciate your assistance in clarifying documentation. Please respond to the clarification below the line at the bottom and electronically sign. The CDI & [facility] Coding staff will review the response and follow-up if needed. Please note: Queries are made part of the Legal Health Record. If you have any questions, please contact the author of this message via ITS. Dr. Jeff Ngo is documented in the Infectious Disease Consult History/Risk Factors: 48 y/o female presents to the ED with Severe abdominal pain. Clinical Indicators: Per the ID consult Patient has been complaining of fever with rigors and chills, feeling nauseated but no vomiting. WBC 15.8 Vitals signs on admission: 119/80 107 98.4 20 97% ra Other Clinical Indicators: Perforated appendics with abscess Treatment: Laporscopic Appendectomy and drainage of abscess ID Consult: Infectious Disease and Family Practice Antibiotics: Rocephin ivpb and Levofloxacin ivpb IV 0.9ns 75cc/hr In your professional opinion, please clarify if these findings signify one of the following conditions, whether the condition is POA, and cause, if known: * Sepsis POA due to Appendicitis with perforation and abscess * Sepsis due to Appendicitis with perforation and abscess * Sepsis ruled out * Other, please specify * Unable to determine SIRS Criteria (2 or more of the following may indicate SIRS): -Temperature < 96.8F (36C) or > 101.0F (38.3C) -Heart Rate > 90 bpm -Respiratory Rate > 20 breaths/min or PaCO2 < 32 mmHg -White Blood Cell Count > 12,000 or < 4,000 cells/mm3 or > 10% bands -Lactate >2.0 mmol/L (>4.0 is equivalent to septic shock) (Last Revision: September 2017 MTDD
[2018-09-22] MEDS: LEVOFLOXACIN 750MG-D5W PMX 750 MG in DEXTROSE/WATER 1 150ML.BAG IVPB SCH (10:59)
[2018-09-22] MEDS: SIMETHICONE 80 MG CHEWABLE PO PRN ×2 (13:34→18:17)
--- NOTE | 2018-09-22 14:17 | PN ---
PROGRESS NOTE DATE OF SERVICE: 09/22/2018 CHIEF COMPLAINT: Status post appendectomy. HISTORY OF PRESENT ILLNESS: This lady is doing well and the pain is being well tolerated. She is trying to move around. PHYSICAL EXAM: Her chest is clear and cardiac exam is normal. The abdomen presents bowel sounds. IMPRESSION: Status post appendectomy. PLAN: No change in postop management at this time. MMODL / IJN: [id number] /
[2018-09-22] MEDS: LACTATED RINGERS 1,000 ML IV SCH (14:35)
[2018-09-22] MEDS: METOCLOPRAMIDE 5 MG/ML 2 ML VIAL IVP PRN ×2 (15:11→22:02)
[2018-09-22] MEDS ORDERED: SODIUM CHLORIDE 0.9% 1,000 ML IV ONE (15:23)
--- NOTE | 2018-09-22 15:25 | P.PN ---
Subjective Progress Note Date: 09/22/18 CHIEF COMPLAINT: Abdominal pain HISTORY OF PRESENT ILLNESS: Patient is status post laparoscopic appendectomy and drainage of abscess. Patient seen at the bedside by Dr. Buck. Patient states her pain is tolerable. She is tolerating oral intake. Denies nausea or vomiting. Patient has been up in the hallway ambulating. WBC 16.7 today. Infectious disease is following. PHYSICAL EXAM: VITAL SIGNS: Reviewed. GENERAL: Well-developed in no acute distress. HEENT: No sclera icterus. Extraocular movements grossly intact. Moist buccal mucosa. Head is atraumatic, normocephalic. ABDOMEN: Soft. Nondistended. Nontender. YOSEF drain with sero-purulent drainage drainage noted. NEUROLOGIC: Alert and oriented. Cranial nerves II through XII grossly intact. ASSESSMENT: 1. Acute appendicitis, status post laparoscopic appendectomy and drainage of abscess PLAN: 1. Pain control 2. Activity as tolerated 3. Incentive spirometry 4. Continue current diet 5. Monitor WBC. Continue antibiotics. Infectious disease on consult. Nurse practitioner note has been reviewed by physician. Signing provider agrees with the documented findings, assessment, and plan of care. Objective - Vital Signs Vital signs: Vital Signs Temp 98.2 F 09/22/18 08:42 Pulse 90 09/22/18 09:00 Resp 18 09/22/18 09:00 BP 120/78 09/22/18 08:42 Pulse Ox 93 L 09/22/18 08:42 Intake & Output 09/21/18 09/22/18 09/22/18 18:59 06:59 18:59 Intake Total 1400 Output Total 70 120 Balance -70 1280 Weight 106.367 kg Intake: Intake, IV Titration 1100 Amount Lactated Ringers 1,000 ml 1000 @ 0 mls/hr IV .STK-MED ONE Rx#:[id number] metroNIDAZOLE-NS PMX 500 100 mg In Saline 1 100ml.bag @ 100 mls/hr IVPB Q8HR [facility] Rx#:[id number] Oral 300 Output: Drainage 70 45 Lower Abdomen 70 45 Emesis 75 Other: Voiding Method Toilet Toilet # Voids 3 1 1 - Labs CBC & Chem 7: 09/22/18 08:18 09/21/18 09:23 Labs: Abnormal Lab Results - Last 24 Hours (Table) 09/22/18 Range/Units 08:18 WBC 16.7 H (3.8-10.6) k/uL Hgb 11.1 L (11.4-16.0) gm/dL Neutrophils # 13.8 H (1.3-7.7) k/uL
--- NOTE | 2018-09-22 16:33 | PN ---
PROGRESS NOTE DATE OF SERVICE: 09/22/2018. REASON FOR FOLLOWUP: 1. Acute ruptured appendicitis. 2. abscess. INTERVAL HISTORY: The patient is currently afebrile. The patient is breathing more comfortably. Denies having any chest pain. No shortness of breath, cough. Abdominal pain has slightly decreased intensity, slight nausea but no vomiting. Did not have any bowel movement. PHYSICAL EXAMINATION: Blood pressure 120/78 with a pulse of 90, temperature 98.2. She is 93% on room air. General description is a middle-aged female lying in bed in no distress. Respiratory system: Unlabored breathing. Clear to auscultation anteriorly. Heart S1, S2. Regular rate and rhythm. Abdomen soft, mildly tender right lower quadrant area. Extremities are no edema of the feet. LABS: Hemoglobin 11.9, white count up to 16.7 today. No cultures. DIAGNOSTIC IMPRESSION AND PLAN: Patient with acute appendicitis perforated with periappendicular abscess, status post laparoscopic appendectomy, drainage of the abscess. Patient currently on Rocephin, Levaquin and Flagyl. However, the white count has been trending up. At this time, we will go ahead obtain blood cultures. Discontinue Levaquin and add Diflucan and repeat the CBC tomorrow. Continue supportive care. MMODL / IJN: [id number] /
[2018-09-22] MEDS: FLUCONAZOLE IN NACL,ISO-OSM 200 MG in SALINE 1 100ML.BAG IVPB SCH (18:09)
[2018-09-23] MEDS: metroNIDAZOLE-NS PMX 500 MG in SALINE 1 100ML.BAG IVPB SCH ×4 (00:01→23:34)
[2018-09-23] MEDS: HYDROcodone/APAP 5-325MG 1 EACH TAB PO PRN ×3 (06:06→20:40)
[2018-09-23] MEDS: DOCUSATE 100 MG CAP PO SCH ×2 (08:16→20:37)
[2018-09-23] MEDS: ENOXAPARIN 40 MG/0.4 ML SYRINGE SQ SCH (08:16)
[2018-09-23] MEDS ORDERED: ONDANSETRON ODT 4 MG TAB PO STA (11:48)
[2018-09-23 12:00] LABS: Basophils % (A) 0 %; Eosinophils # (A) 0.2 k/uL (0-0.7); Eosinophils % (A) 2 %; HCT 33.8 % (34.0-46.0); HGB 10.9 gm/dL (11.4-16.0); Lymphocytes # (A) 1.3 k/uL (1.0-4.8); Lymphocytes % (A) 12 %; MCH 30.4 pg (25.0-35.0); MCHC 32.2 g/dL (31.0-37.0); MCV 94.2 fL (80.0-100.0); Monocytes # (A) 0.6 k/uL (0-1.0); Monocytes % (A) 5 %; Neutrophils # (A) 8.9 k/uL (1.3-7.7); Neutrophils % (A) 80 %; Platelet Count 324 k/uL (150-450); RBC 3.58 m/uL (3.80-5.40); RDW 13.1 % (11.5-15.5); WBC 11.2 k/uL (3.8-10.6)
[2018-09-23] MEDS: LACTATED RINGERS 1,000 ML IV SCH ×3 (12:25→23:34)
[2018-09-23 12:39] LABS: ALT 25 U/L (9-52); AST 23 U/L (14-36); Albumin 3.1 g/dL (3.5-5.0); Alkaline Phosphatase 85 U/L (38-126); Anion Gap 8 mmol/L; Blood Urea Nitrogen 6 mg/dL (7-17); Calcium 8.5 mg/dL (8.4-10.2); Carbon Dioxide 31 mmol/L (22-30); Chloride 99 mmol/L (98-107); Glucose 105 mg/dL (74-99); Potassium 3.8 mmol/L (3.5-5.1); Sodium 138 mmol/L (137-145); Total Bilirubin 0.5 mg/dL (0.2-1.3); Total Protein 5.4 g/dL (6.3-8.2)
--- NOTE | 2018-09-23 14:12 | P.PN ---
Subjective Progress Note Date: 09/23/18 CHIEF COMPLAINT: Abdominal pain HISTORY OF PRESENT ILLNESS: Patient is status post laparoscopic appendectomy and drainage of abscess. patient states her pain is tolerable at this time. She is tolerating diet, but reports decreased intake. Passing flatus. No BM. Patient has been up ambulating in the hallway and showered this morning. WBC 11.2 down from 16.7 yesterday. Infectious disease is following. Temperature 100.2. Patient encouraged to use IS 10 times an hour. PHYSICAL EXAM: VITAL SIGNS: Reviewed. GENERAL: Well-developed in no acute distress. HEENT: No sclera icterus. Extraocular movements grossly intact. Moist buccal mucosa. Head is atraumatic, normocephalic. ABDOMEN: Soft. Nondistended. Surgical incision sites clean dry and intact without drainage. YOSEF drain intact. NEUROLOGIC: Alert and oriented. Cranial nerves II through XII grossly intact. ASSESSMENT: 1. Acute appendicitis, status post laparoscopic appendectomy and drainage of abscess 2. Sepsis, present on admission, secondary to above PLAN: 1. Pain control 2. Activity as tolerated 3. Incentive spirometry 4. Continue current diet 5. Monitor WBC. Continue antibiotics. Infectious disease on consult. Nurse practitioner note has been reviewed by physician. Signing provider agrees with the documented findings, assessment, and plan of care. Objective - Vital Signs Vital signs: Vital Signs Temp 100.2 F H 09/23/18 12:45 Pulse 116 H 09/23/18 12:45 Resp 20 09/23/18 12:45 BP 126/75 09/23/18 12:45 Pulse Ox 90 L 09/23/18 12:45 Intake & Output 09/22/18 09/23/18 09/23/18 18:59 06:59 18:59 Intake Total 60 1161 Output Total 30 30 Balance 30 1131 Intake: Oral 60 1161 Output: Drainage 30 30 Lower Abdomen 30 30 Other: Voiding Method Toilet # Voids 1 - Labs CBC & Chem 7: 09/23/18 10:43 09/23/18 10:43 Labs: Abnormal Lab Results - Last 24 Hours (Table) 09/23/18 09/23/18 Range/Units 10:43 10:43 WBC 11.2 H (3.8-10.6) k/uL RBC 3.58 L (3.80-5.40) m/uL Hgb 10.9 L (11.4-16.0) gm/dL Hct 33.8 L (34.0-46.0) % Neutrophils # 8.9 H (1.3-7.7) k/uL Carbon Dioxide 31 H (22-30) mmol/L BUN 6 L (7-17) mg/dL Glucose 105 H (74-99) mg/dL Total Protein 5.4 L (6.3-8.2) g/dL Albumin 3.1 L (3.5-5.0) g/dL
[2018-09-23] MEDS: FLUCONAZOLE IN NACL,ISO-OSM 200 MG in SALINE 1 100ML.BAG IVPB SCH (15:39)
--- NOTE | 2018-09-23 20:34 | PN ---
PROGRESS NOTE DATE OF SERVICE: 09/23/2018 REASON FOR FOLLOWUP: Acute perforated appendicitis with periappendiceal abscess. INTERVAL HISTORY: The patient is currently afebrile. The patient denies having any chest pain or shortness of breath. Minimal cough. Still has some lower abdominal pain, slight nausea but no vomiting. PHYSICAL EXAMINATION: Blood pressure 131/85 with a pulse of 107, temperature 98. She is 95% on room air. General description is a middle-aged female lying in bed in no distress. HEENT EXAMINATION: Slight pallor. No scleral icterus. LUNGS: Unlabored breathing. Decreased breath sounds in the bases. HEART: S1, S2. Regular rate and rhythm. ABDOMEN: Soft. Mildly tender. No guarding or rigidity. LABS: Hemoglobin is 10.9, white count down to 11.2 with a BUN of 6, creatinine 0.54. DIAGNOSTIC IMPRESSION AND PLAN: Patient admitted to hospital with sepsis. Source is ruptured appendicitis with periappendiceal abscess, status post laparoscopic appendectomy and drainage of the abscess. Patient at this time to continue with Rocephin, Flagyl and Diflucan. White count has shown a downward trend. Continue to monitor patient closely. Continue with supportive care. MMODL / IJN: [id number] /
[2018-09-24] MEDS: HYDROcodone/APAP 5-325MG 1 EACH TAB PO PRN ×2 (05:37→12:50)
[2018-09-24] MEDS: LACTATED RINGERS 1,000 ML IV SCH (07:29)
[2018-09-24] MEDS: metroNIDAZOLE-NS PMX 500 MG in SALINE 1 100ML.BAG IVPB SCH (07:53)
[2018-09-24] MEDS: DOCUSATE 100 MG CAP PO SCH (07:55)
[2018-09-24] MEDS: ENOXAPARIN 40 MG/0.4 ML SYRINGE SQ SCH (07:56)
[2018-09-24 09:16] VITALS: RESP 20
[2018-09-24 11:21] LABS: Basophils % (A) 0 %; Eosinophils # (A) 0.2 k/uL (0-0.7); Eosinophils % (A) 3 %; HCT 31.8 % (34.0-46.0); HGB 10.2 gm/dL (11.4-16.0); Lymphocytes # (A) 1.3 k/uL (1.0-4.8); Lymphocytes % (A) 14 %; MCH 30.5 pg (25.0-35.0); MCHC 32.3 g/dL (31.0-37.0); MCV 94.4 fL (80.0-100.0); Mean Platelet Volume 7.6; Monocytes # (A) 0.5 k/uL (0-1.0); Monocytes % (A) 6 %; Neutrophils # (A) 7.1 k/uL (1.3-7.7); Neutrophils % (A) 77 %; Platelet Count 353 k/uL (150-450); RBC 3.36 m/uL (3.80-5.40); RDW 13.1 % (11.5-15.5); WBC 9.3 k/uL (3.8-10.6)
[2018-09-24] MEDS: ALPRAZolam 0.25 MG TAB PO PRN (11:35)
[2018-09-24 12:18] VITALS: BP 137/80; PULSE 96; TEMP 98.7
[2018-09-24] MEDS: FLUCONAZOLE IN NACL,ISO-OSM 200 MG in SALINE 1 100ML.BAG IVPB SCH (12:46)
--- NOTE | 2018-09-24 14:39 | P.DS ---
Providers Date of admission: 09/21/18 13:16 Expected date of discharge: 09/24/18 Attending physician: Jeff Buck Consults: 09/20/18 08:56 Consult Physician Urgent Consulting Provider: Matthias Vargas Consult Reason/Comments: Medical clearance Do you want consulting provider notified?: Yes 09/20/18 14:41 Consult Physician Routine Consulting Provider: Josh Leyva Consult Reason/Comments: medical management Do you want consulting provider notified?: Yes Primary care physician: Physician Nonstaff Hospital Course: 48-year-old female who presented to the emergency room with abdominal pain. Patient underwent Laparoscopic appendectomy and drainage of abscess. Patient was evaluated by infectious disease during hospitalization and received IV antibiotics. Her white count is now within normal limits. She is being discharged home on oral antibiotics per infectious disease recommendations. Her pain is tolerable oral medications. Patient has been up ambulating in the hallway. Tolerating diet and having bowel movements. She is stable for discharge home today. She is to follow up with Dr. Buck in one week. Patient to be discharged home with YOSEF drain. Please see EMR for further hospital course details. discharge diagnosis: 1. Acute appendicitis, status post laparoscopic appendectomy and drainage of abscess 2. Sepsis, present on admission, secondary to above Nurse practitioner note has been reviewed by physician. Signing provider agrees with the documented findings, assessment, and plan of care. Plan - Discharge Summary Discharge Rx Participant: Yes New Discharge Prescriptions: New HYDROcodone/APAP 7.5-325MG [Maria Stein 7.5-325] 1 tab PO Q4H PRN 3 Days #18 tab PRN Reason: Pain Cefuroxime Axetil [Ceftin] 500 mg PO BID #20 tab Fluconazole [Diflucan] 200 mg PO DAILY #10 tab metroNIDAZOLE [Flagyl] 500 mg PO Q8HR #30 tab No Action ALPRAZolam [Xanax] 0.25 mg PO TID PRN PRN Reason: Anxiety Vitamin C/Biotin [Hair, Skin and Nails] 2 tab PO DAILY Naproxen Sodium [Midol] 220 mg PO Q12HR PRN PRN Reason: Pain Multivitamin [Multivitamins Adult Gummies] 2 tab PO DAILY Ibuprofen [Motrin] 800 mg PO TID PRN PRN Reason: Pain Ibuprofen [Motrin Ib] 600 mg PO QID PRN PRN Reason: Pain Vitamin D Gummies 2 tab PO DAILY Vitamin C Gummies 2 tab PO DAILY Energy Gummies 2 tab PO DAILY Alpha Lipoic Acid 100 mg PO DAILY Discharge Medication List ALPRAZolam [Xanax] 0.25 mg PO TID PRN 11/03/14 [History] Alpha Lipoic Acid 100 mg PO DAILY 09/20/18 [History] Energy Gummies 2 tab PO DAILY 09/20/18 [History] Ibuprofen [Motrin Ib] 600 mg PO QID PRN 09/20/18 [History] Ibuprofen [Motrin] 800 mg PO TID PRN 09/20/18 [History] Multivitamin [Multivitamins Adult Gummies] 2 tab PO DAILY 09/20/18 [History] Naproxen Sodium [Midol] 220 mg PO Q12HR PRN 09/20/18 [History] Vitamin C Gummies 2 tab PO DAILY 09/20/18 [History] Vitamin C/Biotin [Hair, Skin and Nails] 2 tab PO DAILY 09/20/18 [History] Vitamin D Gummies 2 tab PO DAILY 09/20/18 [History] Cefuroxime Axetil [Ceftin] 500 mg PO BID #20 tab 09/24/18 [Rx] Fluconazole [Diflucan] 200 mg PO DAILY #10 tab 09/24/18 [Rx] HYDROcodone/APAP 7.5-325MG [Maria Stein 7.5-325] 1 tab PO Q4H PRN 3 Days #18 tab 09/24/18 [Rx] metroNIDAZOLE [Flagyl] 500 mg PO Q8HR #30 tab 09/24/18 [Rx] Follow up Appointment(s)/Referral(s): Nonstaff,Physician [Primary Care Provider] - 1-2 days Josh Leyva MD [STAFF PHYSICIAN] - 10/04/18 10:15 am Jeff Buck MD [STAFF PHYSICIAN] - 10/01/18 10:00 am Patient Instructions/Handouts: *Surgery [facility] - Scopalamine Patch Instructions Activity/Diet/Wound Care/Special Instructions: No driving while taking Maria Stein No lifting over 10 pounds You may shower. No soaking or tub baths Very light activity until you are reevaluated at your follow up appointment with your surgeon Keep a record of YOSEF drainage and bring with you to your follow-up appointment ( see instruction sheet) regular diet as tolerated, fluids always encouraged. good hand washing before and after drain care. call Dr if any increased pain not covered with pain meds, increased redness or discolored drainage from your puncture sites.sudden increase or concerning drainage from your nickie bowen drain.unable to tolerated diet or any concerns. Last received. 1 norco 5 at 1250 Last received flagyl at 0800 am continue to use your incentive spirometery at home Discharge Disposition: HOME SELF-CARE
--- NOTE | 2018-09-24 16:22 | PN ---
PROGRESS NOTE DATE OF SERVICE: 09/24/2018 REASON FOR FOLLOWUP: Ruptured appendicitis with periappendiceal abscess. INTERVAL HISTORY: The patient is currently afebrile. The patient is breathing comfortably. The patient's pain into the right lower quadrant area has improved. No nausea. No vomiting. Denies having any chest pain or shortness of breath or cough. PHYSICAL EXAMINATION: Her blood pressure is 137/80 with a pulse of 96, temperature 98.7. She is 95% on room air. General description is a middle-aged female lying in bed in no distress. HEENT examination shows slight pallor. No scleral icterus. Oral mucosa membrane is dry. LUNGS: Unlabored breathing. Clear to auscultation anteriorly. HEART: S1, S2. Regular rate and rhythm. ABDOMEN: Soft. No tenderness. EXTREMITIES: No edema of the feet. LABS: Hemoglobin is 10.2, white count 9.3. Blood culture has been negative. DIAGNOSTIC IMPRESSION AND PLAN: Patient with acute ruptured appendicitis with periumbilical abscess, status post drainage. The patient's white count has normalized. We will transition her antibiotic therapy to Ceftin, Flagyl and Diflucan for a total of 10 days with close outpatient followup. Prescriptions sent to the pharmacy, care discussed with the surgical team. MMODL / IJN: [id number] /
--- NOTE | 2018-09-24 21:56 | PN ---
PROGRESS NOTE DATE OF SERVICE: 09/23/2018 CHIEF COMPLAINT: Status post appendectomy. HISTORY OF PRESENT ILLNESS: This lady is slowly improving. She is having a little bit less pain each day. Temperature has been down. PHYSICAL EXAMINATION: Color is good. Chest is clear. Cardiac exam is normal. Abdomen is soft, nontender. IMPRESSION: Status post perforated appendectomy. PLAN: Continue to follow, but she is doing well. MMODL / IJN: [id number] /
--- NOTE | 2018-09-24 22:17 | PN ---
PROGRESS NOTE CHIEF COMPLAINT: Status post appendectomy. HISTORY OF PRESENT ILLNESS: This lady is doing much better. Pain is improving and she is up and about. She may be going home today or tomorrow. PHYSICAL EXAM: She is afebrile. Chest is clear. Cardiac exam is normal. Bowel sounds are present. IMPRESSION: Status post appendectomy. PLAN: Probably home today or tomorrow. MMODL / IJN: [id number] /
== END 2018-09-24 15:10 | disposition home or self-care (01) | DRG 853 ==
LOC: EC 05:40 → 6PED 09:04 → OBSVTOIN 09-21 13:16 → 6PED 09-21 15:58
PROVIDERS: ADMIT Surgery; ATTEND Surgery
PROC: 0W9G4ZZ Drainage of Peritoneal Cavity, Percutaneous Endoscopic Approach (ICD-10-PCS; 2018-09-20)
PROC: 0DTJ4ZZ Resection of Appendix, Percutaneous Endoscopic Approach (ICD-10-PCS; principal; 2018-09-20 12:50)
DX: A41.9 Sepsis, unspecified organism (principal); K35.33 Acute appendicitis with perforation, localized peritonitis, and gangrene, with abscess; M17.0 Bilateral primary osteoarthritis of knee; G89.29 Other chronic pain; M46.96 Unspecified inflammatory spondylopathy, lumbar region; Z79.899 Other long term (current) drug therapy; Z88.0 Allergy status to penicillin; Z80.3 Family history of malignant neoplasm of breast; Z82.49 Family history of ischemic heart disease and other diseases of the circulatory system
CPT/HCPCS: 36415; 74176; 74177; 80053; 81001; 81025; 82150; 83690; 85025; 87040; 88304; 96365; 96375; 99285

== ENCOUNTER → 2018-10-05 | Outpatient (CLI) | payer BC ==
--- NOTE | 2018-10-06 07:54 | USB ---
Reason for exam: additional evaluation requested from abnormal screening. History: Patient is nulliparous. Family history of breast cancer in maternal aunt at age 60. Benign US biopsy breast VAD RT of the right breast, April 05, 2015. Benign MG pre op needle loc RT of the right breast, November 08, 2014. Benign US breast aspiration single RT of the right breast, October 03, 2014. Benign excisional biopsy of the right breast, 2009. Took hormonal contraceptives for 16 years beginning at age 16. Physical Findings: Nurse did not find any significant physical abnormalities on exam. US Breast Workup Limited LT Left limited breast ultrasound including focal area of concern, retroareolar and axilla demonstrates a 3.1 x 2.5 x 1.2cm cystic lesion at 1 o'clock. These results were verbally communicated with the patient and result sheet given to the patient on 10/05/18. ASSESSMENT: Benign, BI-RAD 2 RECOMMENDATION: Return to routine screening mammogram schedule for both breasts.
== END | disposition home or self-care (01) ==
LOC: RADUSWWP 14:39
PROVIDERS: ATTEND Obstetrics & Gynecology
DX: R92.8 Other abnormal and inconclusive findings on diagnostic imaging of breast (principal)

== ENCOUNTER → 2019-08-09 | Outpatient (CLI) | payer BC ==
--- NOTE | 2019-08-09 14:05 | XR ---
EXAMINATION TYPE: XR chest 2V DATE OF EXAM: 08/09/2019 COMPARISON: NONE HISTORY: Cough TECHNIQUE: Frontal and lateral views of the chest are obtained. FINDINGS: There is no focal air space opacity, pleural effusion, or pneumothorax seen. The cardiac silhouette size is within normal limits. The osseous structures are intact. IMPRESSION: No acute cardiopulmonary process.
== END | disposition home or self-care (01) ==
LOC: RADXRMAIN 13:26
PROVIDERS: ATTEND Internal Medicine
DX: R05 Cough (principal)
CPT/HCPCS: 71046

== ENCOUNTER → 2019-11-11 | Outpatient (CLI) | payer BC ==
--- NOTE | 2019-11-15 08:22 | MM ---
Reason for exam: screening (asymptomatic). Last mammogram was performed 1 year and 2 months ago. History: Patient is nulliparous. Family history of breast cancer in maternal aunt at age 60. Benign US biopsy breast VAD RT of the right breast, April 05, 2015. Benign MG pre op needle loc RT of the right breast, November 08, 2014. Benign US breast aspiration single RT of the right breast, October 03, 2014. Benign excisional biopsy of the right breast, 2009. Took hormonal contraceptives for 16 years beginning at age 16. Physical Findings: A clinical breast exam by your physician is recommended on an annual basis and results should be correlated with mammographic findings. MG 3D Screening Mammo W/Cad Bilateral CC and MLO view(s) were taken. Prior study comparison: September 09, 2018, bilateral MG 3d screening mammo w/cad. August 27, 2017, bilateral MG 3d diag mammo w/cad [facility]. The breast tissue is heterogeneously dense. This may lower the sensitivity of mammography. Finding: Architectural distortion in the right breast at revious mammotome biopsy, known excisional changes. There is no discrete abnormality. ASSESSMENT: Benign, BI-RAD 2 RECOMMENDATION: Routine screening mammogram of both breasts in 1 year.
== END | disposition home or self-care (01) ==
LOC: RADMAMWWP 13:56
PROVIDERS: ATTEND Obstetrics & Gynecology
DX: Z12.31 Encounter for screening mammogram for malignant neoplasm of breast (principal); Z80.3 Family history of malignant neoplasm of breast
CPT/HCPCS: 77063; 77067

== ENCOUNTER → 2020-11-29 | Outpatient (CLI) | payer BC ==
--- NOTE | 2020-11-30 12:47 | MM ---
Reason for exam: screening (asymptomatic). Last mammogram was performed 1 year and 1 month ago. History: Patient is nulliparous. Family history of breast cancer in maternal aunt at age 60. Benign US biopsy breast VAD RT of the right breast, April 05, 2015. Benign MG pre op needle loc RT of the right breast, November 08, 2014. Benign US breast aspiration single RT of the right breast, October 03, 2014. Benign excisional biopsy of the right breast, 2009. Took hormonal contraceptives for 16 years beginning at age 16. Physical Findings: A clinical breast exam by your physician is recommended on an annual basis and results should be correlated with mammographic findings. MG 3D Screening Mammo W/Cad Bilateral CC and MLO view(s) were taken. Prior study comparison: November 11, 2019, bilateral MG 3d screening mammo w/cad. September 09, 2018, bilateral MG 3d screening mammo w/cad. The breast tissue is heterogeneously dense. This may lower the sensitivity of mammography. Right biopsy clip. ASSESSMENT: Benign, BI-RAD 2 RECOMMENDATION: Routine screening mammogram of both breasts in 1 year.
== END | disposition home or self-care (01) ==
LOC: RADMAMWWP 10-19 16:18
PROVIDERS: ATTEND Obstetrics & Gynecology
DX: Z12.31 Encounter for screening mammogram for malignant neoplasm of breast (principal); Z80.3 Family history of malignant neoplasm of breast
CPT/HCPCS: 77063; 77067

== ENCOUNTER → 2022-01-06 | Outpatient (CLI) | payer BC ==
--- NOTE | 2022-01-07 09:59 | MM ---
Reason for Exam: Screening (asymptomatic). Last mammogram was performed 1 year(s) and 1 month(s) ago. Patient History: Menarche at age 13. Patient has no children. Hormonal Contraceptives, starting at age 16 for 16 years. 2009, Benign Excisional Biopsy on the right side. 04/05/2015, Benign Core Biopsy on the right side. 11/08/2014, Benign Core Biopsy on the right side. 10/03/2014, Benign Cyst Aspiration on the right side. Maternal aunt had breast cancer, age 60. Risk Values: Latonya 5 year model risk: 1.7%. NCI Lifetime model risk: 14.3%. Prior Study Comparison: 09/09/2018 Bilateral Screening Mammogram, [facility]. 11/11/2019 Bilateral Screening Mammogram, [facility]. 11/29/2020 Bilateral Screening Mammogram, [facility]. Tissue Density: The breast tissue is heterogeneously dense. This may lower the sensitivity of mammography. Findings: Analyzed By CAD. Right breast biopsy clip redemonstrated. High density asymmetry demonstrated on the CC view of the right lateral breast. There is no suspicious group of microcalcifications. Overall Assessment: Incomplete: need additional imaging evaluation, BI-RAD 0 Management: Diagnostic Mammogram of the right breast. A clinical breast exam by your physician is recommended on an annual basis and results should be correlated with mammographic findings. [facility] will attempt to contact patient to return for supplemental views and ultrasound if indicated. Electronically signed and approved by: Pierce Plata D.O.
== END | disposition home or self-care (01) ==
LOC: RADMAMWWP 16:45
PROVIDERS: ATTEND Obstetrics & Gynecology
DX: Z12.31 Encounter for screening mammogram for malignant neoplasm of breast (principal); Z80.3 Family history of malignant neoplasm of breast
CPT/HCPCS: 77063; 77067

== ENCOUNTER → 2022-01-09 | Outpatient (CLI) | payer BC ==
--- NOTE | 2022-01-09 15:37 | MM ---
Reason for Exam: Additional evaluation requested from abnormal screening. Last screening mammogram was performed less than 1 month ago. Patient History: Menarche at age 13. Patient has no children. Hormonal Contraceptives, starting at age 16 for 16 years. 2009, Benign Excisional Biopsy on the right side. 04/05/2015, Benign Core Biopsy on the right side. 11/08/2014, Benign Core Biopsy on the right side. 10/03/2014, Benign Cyst Aspiration on the right side. Maternal aunt had breast cancer, age 60. Risk Values: Latonya 5 year model risk: 1.7%. NCI Lifetime model risk: 14.3%. Tissue Density: Right: The breast tissue is heterogeneously dense. This may lower the sensitivity of mammography. Findings: Analyzed By CAD. Microclip upper outer quadrant right breast. Tissue becomes even more superimposed on the true lateral view. Extensive density and areas of asymmetry is present. Some become less pronounced on spot 3-D cc and others may incompletely disperse. Further ultrasound evaluation recommended. Overall Assessment: Incomplete: need additional imaging evaluation, BI-RAD 0 Management: Diagnostic Breast Ultrasound of the right breast. Upper-outer quadrant given the background of dense tissues. Electronically signed and approved by: Leobardo Craft M.D. Radiologist
--- NOTE | 2022-01-09 16:11 | USB ---
Reason for Exam: Additional evaluation requested from abnormal screening. Patient History: Menarche at age 13. Patient has no children. Hormonal Contraceptives, starting at age 16 for 16 years. 2009, Benign Excisional Biopsy on the right side. 04/05/2015, Benign Core Biopsy on the right side. 11/08/2014, Benign Core Biopsy on the right side. 10/03/2014, Benign Cyst Aspiration on the right side. Maternal aunt had breast cancer, age 60. Risk Values: Latonya 5 year model risk: 1.7%. NCI Lifetime model risk: 14.3%. Technique: Method: Targeted. Prior Study Comparison: 11/11/2019 Bilateral Screening Mammogram, [facility]. 11/29/2020 Bilateral Screening Mammogram, [facility]. 01/06/2022 Bilateral MG 3D screening mammo w/cad, [facility]. Findings: The upper outer quadrant of the right breast, the axilla of the right breast and the retroareolar of the right breast were scanned. Targeted scanning right breast upper-outer quadrant 9:00 to 12:00. 10:00 scar tissue noted at 6 cm from the nipple. Just adjacent, there is a tiny 4 x 4 x 4 mm cyst with debris. No other solid or cystic lesion is seen. Dense tissues are present throughout.. Overall Assessment: Probably benign, BI-RAD 3 Management: Diagnostic Mammogram of the right breast in 6 months. 1. Patient should continue monthly self breast exams. 2. A clinical breast exam by your physician is recommended on an annual basis. 3. This exam should not preclude additional follow-up of suspicious palpable abnormalities. Electronically signed and approved by: Leobardo Craft M.D. Radiologist
== END | disposition home or self-care (01) ==
LOC: RADMAMWWP 14:52
PROVIDERS: ATTEND Obstetrics & Gynecology
DX: N60.01 Solitary cyst of right breast (principal); Z80.3 Family history of malignant neoplasm of breast
CPT/HCPCS: 77061; 77065

== ENCOUNTER → 2023-05-26 | Outpatient (CLI) | payer BC ==
--- NOTE | 2023-05-26 13:46 | MM ---
Reason for Exam: Additional evaluation requested from prior study. Last mammogram was performed 1 year(s) and 5 month(s) ago. Patient History: Menarche at age 13. Patient has no children. Hormonal Contraceptives, starting at age 16 for 16 years. 2009, Benign Excisional Biopsy on the right side. 04/05/2015, Benign Core Biopsy on the right side. 11/08/2014, Benign Core Biopsy on the right side. 10/03/2014, Benign Cyst Aspiration on the right side. Maternal aunt had breast cancer, age 60. Risk Values: Latonya 5 year model risk: 1.8%. NCI Lifetime model risk: 13.8%. Prior Study Comparison: 11/11/2019 Bilateral Screening Mammogram, [facility]. 11/29/2020 Bilateral Screening Mammogram, [facility]. 01/06/2022 Bilateral MG 3D screening mammo w/cad, [facility]. 01/09/2022 Right MG 3D work up w/cad RT, [facility]. 08/04/2022 Right MG 3D diag mammo w/cad RT, [facility]. Tissue Density: The breast tissue is extremely dense which could obscure a lesion on mammography. Findings: Analyzed By CAD. Pattern appears symmetrical and stable. Surgical marker is within the right breast. Previous abnormal density in the anterior right breast is not identified on the current examination. No suspicious groups of microcalcifications, spiculated or lobular masses, architectural distortion or other secondary signs of malignancy are mammographically apparent. Overall Assessment: Benign, BI-RAD 2 Management: Screening Mammogram of both breasts in 1 year. A negative mammogram report should not preclude additional follow up of suspicious palpable abnormalities. Patient should continue monthly self breast exam. A clinical breast exam by your physician is recommended on an annual basis and results should be correlated with mammographic findings. Electronically signed and approved by: Ron Estevez D.O. Radiologis
== END | disposition home or self-care (01) ==
LOC: RADMAMWWP 13:01
PROVIDERS: ATTEND Obstetrics & Gynecology
DX: R92.343 Mammographic extreme density, bilateral breasts (principal); Z80.3 Family history of malignant neoplasm of breast
CPT/HCPCS: 77062; 77066

== ENCOUNTER → 2024-04-13 | Outpatient (CLI) | payer BC ==
[2024-04-13 19:49] LABS: Basophils # (A) 0.05 X 10*3/uL (0.00-0.10); Basophils % (A) 0.5 %; Eosinophils # (A) 0.13 X 10*3/uL (0.04-0.35); Eosinophils % (A) 1.3 %; HCT 36.3 % (37.2-46.3); Lymphocytes % (A) 30.6 %; MCH 30.8 pg (27.0-32.0); MCHC 33.1 g/dL (32.0-37.0); MCV 93.1 FL (80.0-97.0); Mean Platelet Volume 11.3 FL (9.5-12.2); Monocytes # (A) 0.64 X 10*3/uL (0.20-1.00); Monocytes % (A) 6.5 %; NRBC Per 100 WBC 0 X 10*3/uL (0.00-0.01); Neutrophils # (A) 5.96 X 10*3/uL (1.80-7.70); Neutrophils % (A) 60.8 %; Platelet Count 289 X 10*3/uL (140-440); RDW 12.5 % (11.5-14.5); WBC 9.81 X 10*3/uL (4.50-10.00)
[2024-04-13 21:45] LABS: Blood Urea Nitrogen 15.9 mg/dL (9.0-27.0); Carbon Dioxide 26.1 mmol/L (21.6-31.8); Chloride 104 mmol/L (96-109); Glucose 99 mg/dL (70-110); Potassium 3.9 mmol/L (3.5-5.5); Sodium 140 mmol/L (135-145)
== END | disposition home or self-care (01) ==
LOC: LABPAT 13:34
PROVIDERS: ATTEND Obstetrics & Gynecology Obstetrics
DX: Z01.818 Encounter for other preprocedural examination (principal); I10 Essential (primary) hypertension; N92.0 Excessive and frequent menstruation with regular cycle
CPT/HCPCS: 80051; 82565; 82947; 84520; 85025; 86850; 86900; 86901; 87086; 93005

== ENCOUNTER 2024-04-21 05:39 | Day surgery (SDC) | payer BC ==
[2024-04-18 10:55] VITALS: BMI 34.8
[2024-04-21] MEDS ORDERED: LIDOCAINE 1% (10MG/ML) FOR IV START INTRADERMA PRN (05:46)
[2024-04-21] MEDS: IV FLUID CONTINUATION 1,000 ML IV ONE (06:12)
[2024-04-21 06:17] VITALS: RESP 16
[2024-04-21] MEDS: ONDANSETRON 4 MG/2 ML VIAL IVP PRN ×2 (06:54→11:47)
[2024-04-21] MEDS: LACTATED RINGERS 1,000 ML IV SCH (06:54)
[2024-04-21] MEDS: DEXAMETHASONE SOD PHOSPHATE 4 MG/ML 1 ML VIAL IV ONE (06:54)
[2024-04-21] MEDS: SCOPOLAMINE 1 MG/72 HR PATCH TRANSDERM ONE (06:59)
[2024-04-21] MEDS ORDERED: HYDROmorphone 0.5 MG/0.5 ML SYRINGE IVP PRN (07:00)
[2024-04-21] MEDS: fentaNYL (PF) 50 MCG/ML 2 ML AMP IVP PRN (07:05)
[2024-04-21] MEDS: MIDAZOLAM 2 MG/2 ML VIAL IV ONE (07:06)
[2024-04-21] MEDS ORDERED: NALOXONE 0.4 MG/ML 1 ML VIAL IV PRN (07:23)
[2024-04-21] MEDS ORDERED: KETOROLAC 15 MG/ML 1 ML VIAL IVP PRN (07:23)
--- NOTE | 2024-04-21 07:25 | P.ANPRN ---
Procedure Note - Anesthesia - Epidural/Spinal Spinal Time Out Performed: Yes Date of Procedure: 04/21/24 Procedure Start Time: 07:05 Procedure Stop Time: 07:12 Location of Patient: PreOp Indication: Acute Post-Operative Pain, Requested by Surgeon Sedation Type: Sedate with meaningful contact maintained Preparation: Sterile Prep Position: Sitting Needle Guage: 25 Blood Aspirated: No Pain Paresthesia on Injection Noted: No Events: Uneventful and Well Tolerated (intrathecal mduraorph + 25 mcg fentanyl injected intrathecally)
[2024-04-21] MEDS: diphenhydrAMINE 50 MG/ML 1 ML VIAL IVP PRN (07:27)
[2024-04-21] MEDS: BUPIVACAINE (PF) 0.25% 30 ML VIAL SQ ONE ×2 (08:40→09:20)
[2024-04-21] MEDS: LACTATED RINGERS 1,000 ML IV ONE (09:11)
[2024-04-21] MEDS ORDERED: SIMETHICONE 80 MG CHEWABLE PO PRN (09:31)
[2024-04-21] MEDS ORDERED: ONDANSETRON 4 MG/2 ML VIAL IVP PRN (09:31)
--- NOTE | 2024-04-21 09:39 | P.OP ---
Date of Procedure: 04/21/24 Preoperative Diagnosis: Heavy menstrual bleeding, uterine fibroids, enlarged uterus Postoperative Diagnosis: Same Procedure(s) Performed: Robotic assisted vaginal hysterectomy, bilateral salpingectomy, diagnostic cystoscopy Anesthesia: ALISONA Surgeon: Myrtle Christianson [employer] Prevention Investigator #1: Judy Navarro Estimated Blood Loss (ml): 50 IV fluids (ml): 1,000 Urine output (ml): 150 (Clear yellow) Pathology: other (Uterus, cervix, bilateral fallopian tubes) Condition: stable Disposition: PACU Indications for Procedure: Heavy menstrual bleeding with known enlarged uterus, uterine fibroids Operative Findings: Grossly enlarged uterus, multiple fibroids appreciated, on cystoscopy normal bladder mucosa was appreciated, ureteral flow was noted from bilateral ureters. Normal ovaries were appreciated bilaterally. Description of Procedure: Patient was taken back to the operating suite where general anesthesia was obtained without difficulty by the anesthesia department. She was prepped and draped in the normal sterile fashion in the dorsolithotomy position. A Rivera catheter was placed under sterile technique. A weighted speculum is placed in the posterior vaginal vault the anterior lip of the cervix was visualized and grasped with a single-tooth tenaculum. The endocervical canal was then serially dilated and a Vcare uterine manipulator was placed. The balloon was insufflated with air and the cervical cap was placed snugly against the cervix. All instruments were then removed from the patient's vaginal vault. Attention was then turned to the patient's abdomen where approximately 2 fingerbreadths above the umbilicus a small skin incision is made. Through this incision the Veress needle is placed. Once the various needle is deemed to be in the appropriate position with a drop of CO2 pressure with the insufflation of CO2 gas CO2 insufflation was allowed to occur. Approximately 3 L of gas were used to obtain pneumoperitoneum. At this time an 8 line layer trocar and sleeve with the laparoscope in place was placed through the skin incision and toward the pneumoperitoneum. The above-noted findings are visualized. The additional port sites are now placed at 10 cm lateral and 3 cm inferior to midline port, these are 8 mm ports and placed under direct visualization. In the left upper quadrant a 12 mm trocar and sleeve is placed under direct visualization. The da Hernan is then docked in usual fashion. In the right operative arm the monopolar scissors, the left operative arm the bipolar forceps is placed. Attention was then turned to the patient's left fallopian tube which was elevated and the mesosalpinx was coagulated and transected to the level of the utero-ovarian ligament. The utero-ovarian ligament was visualized coagulated distally and proximally and divided. The round ligament was visualized coagulated and transected. Hemostasis was noted. The lateral fibroid was appreciated and somewhat obscuring the bladder flap area. The right fallopian tube was then elevated and the mesosalpinx was coagulated and transected to the level of the utero-ovarian ligament. Hemostasis was noted. The utero-ovarian ligament was visualized coagulated and transected. The round ligament was visualized coagulated and transected hemostasis noted throughout. The bladder flap from the right was then created using sharp and blunt dissection. The ascending branch of the uterine artery was visualized coagulated and transected. Hemostasis was noted once again. Attention was then turned to the patient's left uterine cervical junction. The bladder flap was created using sharp and blunt dissection, the bladder was noted to be far away from the operating field. Multiple accessory vessels were visualized coagulated and transected. The uterine artery was visualized coagulated and transected. At this time the only remaining attachment was a vaginal attachment therefore colpotomy incision was made in a circumferential fashion. The uterus bilateral fallopian tubes were delivered through the vaginal opening. The pelvis was then copiously irrigated. The vaginal cuff was closed with multiple yplatn-oy-twelf sutures of 0 Vicryl. Approximately 5 sutures were used to obtain closure. The pelvis was then irrigated hemostasis was noted. A small amount of oozing was noted on the left lateral vaginal cuff edge therefore Surgicel powder was placed along the vaginal cuff. All instruments were then removed from the patient's abdomen. The da Hernan was then docked in usual fashion. Attention was then turned the patient's Rivera catheter which was removed and noted to be spilling clear yellow urine. The cystoscope was placed through the urethra and toward the bladder, bladder bubble was appreciated. The ureteral jets were noted bilaterally. An intact cavity was appreciated and full inspection of the bladder mucosa. The cystoscope was removed and the Rivera catheter was was placed under sterile technique. The vaginal mucosa was inspected and found to be intact no lacerations were appreciated. The skin incisions were then closed with 4-0 Vicryl in a subcuticular fashion. Steri-Strips and sterile dressings were applied. All counts were noted be correct x 2. Patient tolerated procedure well and was taken the recovery awake in stable condition.
[2024-04-21] MEDS ORDERED: ACETAMINOPHEN TAB 500 MG TAB PO SCH (09:45)
[2024-04-21] MEDS: NALBUPHINE 10 MG/ML (10 ML MDV) IV PRN (13:39)
[2024-04-21] MEDS: IBUPROFEN 800 MG TAB PO SCH (18:37)
[2024-04-21] MEDS: SENNOSIDES-DOCUSATE SODIUM 1 EACH TAB PO SCH (19:46)
[2024-04-21] MEDS: droPERidol 5 MG/2 ML VIAL IVP ONE (20:35)
[2024-04-21] MEDS: ACETAMINOPHEN TAB 500 MG TAB PO SCH (20:37)
[2024-04-21] MEDS: IBUPROFEN IV 800 MG in SODIUM CHLORIDE 0.9% 250 ML IV ONE (20:39)
[2024-04-22 06:59] LABS: Basophils % (A) 0 %; Eosinophils # (A) 0.1 k/uL (0-0.7); Eosinophils % (A) 1 %; HCT 33.7 % (34.0-46.0); HGB 10.8 gm/dL (11.4-16.0); Lymphocytes # (A) 2.6 k/uL (1.0-4.8); Lymphocytes % (A) 24 %; MCH 30.8 pg (25.0-35.0); MCHC 32.2 g/dL (31.0-37.0); MCV 95.8 fL (80.0-100.0); Mean Platelet Volume 8.2; Monocytes # (A) 0.5 k/uL (0-1.0); Monocytes % (A) 5 %; Neutrophils # (A) 7.7 k/uL (1.3-7.7); Neutrophils % (A) 69 %; Platelet Count 276 k/uL (150-450); RBC 3.52 m/uL (3.80-5.40); RDW 12.9 % (11.5-15.5); WBC 11.1 k/uL (3.8-10.6)
[2024-04-22 08:07] VITALS: BP 129/69; PULSE 78; TEMP 98.1
--- NOTE | 2024-04-22 08:38 | P.DS ---
Providers Date of admission: 04/21/2024 Expected date of discharge: 04/22/24 Attending physician: Myrtle Christianson Primary care physician: Wing Malik, DO - Discharge Diagnosis(es) (1) Enlarged uterus Current Visit: Yes Status: Acute (2) Uterine fibroid Current Visit: Yes Status: Acute (3) Heavy menstrual bleeding Current Visit: Yes Status: Acute Hospital Course: 53-year-old female that presented the hospital on 04/21 for scheduled robotic assisted vaginal hysterectomy, bilateral salpingectomy, diagnostic cystoscopy secondary to heavy menstrual bleeding, enlarged uterus, known uterine fibroids. For full details on this patient please see the history and physical. Patient was taken back to the operating suite where robotic assisted vaginal hysterectomy was performed without difficulty. For full details on the surgery please see the dictated operative report. Surgical findings of enlarged uterus, multiple fibroids were appreciated. Normal ovaries bilaterally. Patient's postoperative course has been uneventful. In this postoperative day #1 she is ambulating without difficulty, awaiting spontaneous void. She is tolerating a regular diet without nausea or vomiting. She states her pain is well-contro lled. She denies concerns. She would like discharge home when appropriate. Patient Condition at Discharge: Good Plan - Discharge Summary Discharge Rx Participant: Yes New Discharge Prescriptions: No Action Super Beets 1 each PO DAILY [place]-3/Dha/Epa/Fish Oil [Fish Oil 500 mg Softgel] 1 each PO DAILY Multivit-Min/Iron Fum/Folic AC [One-A-Day Women's Complete Tab] 1 each PO DAILY Inulin/Chromium Picolinate [Fiber Gummies Chew] 2 tab PO DAILY Cyanocobalamin (Vitamin B-12) [Vitamin B-12] 5,000 mcg PO DAILY Cholecalciferol (Vitamin D3) [Vitamin D3 (50 Mcg = 2000 Iu)] 50 mcg PO DAILY Chlorthalidone 25 mg PO DAILY L.acidoph,Paracasei, B.lactis [Probiotic] 1 each PO DAILY Cranberry Fruit Extract [Cranberry] 500 mg PO DAILY Ascorbic Acid [Vitamin C] 1,000 mg PO DAILY Discharge Medication List Ascorbic Acid [Vitamin C] 1,000 mg PO DAILY 04/18/24 [History] Chlorthalidone 25 mg PO DAILY 04/18/24 [History] Cholecalciferol (Vitamin D3) [Vitamin D3 (50 Mcg = 2000 Iu)] 50 mcg PO DAILY 04/18/24 [History] Cranberry Fruit Extract [Cranberry] 500 mg PO DAILY 04/18/24 [History] Cyanocobalamin (Vitamin B-12) [Vitamin B-12] 5,000 mcg PO DAILY 04/18/24 [History] Inulin/Chromium Picolinate [Fiber Gummies Chew] 2 tab PO DAILY 04/18/24 [History] L.acidoph,Paracasei, B.lactis [Probiotic] 1 each PO DAILY 04/18/24 [History] Multivit-Min/Iron Fum/Folic AC [One-A-Day Women's Complete Tab] 1 each PO DAILY 04/18/24 [History] [place]-3/Dha/Epa/Fish Oil [Fish Oil 500 mg Softgel] 1 each PO DAILY 04/18/24 [History] Super Beets 1 each PO DAILY 04/18/24 [History] Follow up Appointment(s)/Referral(s): Myrtle Christianson DO [Doctor of Osteopathic Medicine] - 2 Weeks Patient Instructions/Handouts: Laparoscopic Hysterectomy (DC), Laparoscopic Hysterectomy (GEN) Activity/Diet/Wound Care/Special Instructions: No tub baths or intercourse until 8 weeks postoperatively. Wulb-sle-lkdsvai ibuprofen 600 mg or 3 tablets every 6 hours as needed for pain. Routine follow- up is to be scheduled at 2 weeks postoperatively. Postoperative care is discussed. Constipation is common in stool softeners as needed. Vaginal bleeding/spotting can be common postoperatively. Precautions are reviewed. Discharge Disposition: HOME SELF-CARE
--- NOTE | 2024-04-22 11:27 | P.PN ---
Progress Note - Text 04/22/24 53-year-old female status post vaginal hysterectomy. Patient has received spinal Duramorph for postop pain control, patient seen and evaluated, she has a VAS of 0. The only complaint she has is pruritus which should subside
== END 2024-04-22 12:50 | disposition home or self-care (01) ==
LOC: OR 05:39 → 4FBP 09:31 → OR 04-22 12:50
PROVIDERS: ATTEND Obstetrics & Gynecology Obstetrics
DX: D25.1 Intramural leiomyoma of uterus (principal); G89.18 Other acute postprocedural pain; N83.8 Other noninflammatory disorders of ovary, fallopian tube and broad ligament
CPT/HCPCS: 58552; S2900; 81025; 85025; 88307

== ENCOUNTER → 2024-06-09 | Outpatient (CLI) | payer BC ==
--- NOTE | 2024-06-13 17:24 | MM ---
Reason for Exam: Screening (asymptomatic). Last screening mammogram was performed 12 month(s) ago. Patient History: Menarche at age 13. Patient has no children. Hysterectomy at age 54. Hormonal Contraceptives, starting at age 16 for 16 years. 2009, Benign Excisional Biopsy on the right side. 04/05/2015, Benign Core Biopsy on the right side. 11/08/2014, Benign Core Biopsy on the right side. 10/03/2014, Benign Cyst Aspiration on the right side. Maternal aunt had breast cancer, age 60. Risk Values: Latonya 5 year model risk: 1.9%. NCI Lifetime model risk: 13.6%. Prior Study Comparison: 01/09/2022 Right MG 3D work up w/cad RT, [facility]. 08/04/2022 Right MG 3D diag mammo w/cad RT, [facility]. 05/26/2023 Bilateral MG 3D diag mammo w/cad [facility], [facility]. Tissue Density: The breasts are heterogeneously dense, which may obscure small masses. Findings: Analyzed By CAD. Similar postexcisional changes right breast. There is a microclip year related to a prior biopsy as well. There is no suspicious group of microcalcifications or new suspicious mass in either breast. Overall Assessment: Benign, BI-RAD 2 Management: Screening Mammogram of both breasts in 1 year. . Patient should continue monthly self-breast exams. A clinical breast exam by your physician is recommended on an annual basis. This exam should not preclude additional follow-up of suspicious palpable abnormalities. Note on Latonya scores and lifetime risk: 1. A Latonya score greater than 3% is considered moderate risk. If this is the case, consider specialist referral to assess eligibility for a risk reducing agent. 2. If overall lifetime risk for the development of breast cancer is 20% or higher, the patient may qualify for future screening with alternating mammogram and breast MRI. [facility], , 06/13/2024 5:21 PM. Electronically signed and approved by: Leobardo Craft M.D. Radiologist
== END | disposition home or self-care (01) ==
LOC: RADMAMWWP 10:54
PROVIDERS: ATTEND Obstetrics & Gynecology Obstetrics
DX: Z12.31 Encounter for screening mammogram for malignant neoplasm of breast (principal); Z80.3 Family history of malignant neoplasm of breast; R92.333 Mammographic heterogeneous density, bilateral breasts
CPT/HCPCS: 77063; 77067